=== PATIENT | male | born 1975 | race Caucasian/White ===

== ENCOUNTER 2017-12-08 12:53 | Inpatient (IN) | payer BC ==
[2017-12-08] MEDS ORDERED: SODIUM CHLORIDE 0.9% 1,000 ML IV STA (13:45)
[2017-12-08] MEDS ORDERED: PANTOPRAZOLE 40 MG/10 ML VIAL IVP STA (13:45)
[2017-12-08] MEDS ORDERED: SODIUM CHLORIDE 0.9% 500 ML IV STA (13:45)
[2017-12-08] MEDS ORDERED: ONDANSETRON 4 MG/2 ML VIAL IVP STA (13:45)
[2017-12-08] MEDS ORDERED: MORPHINE SULFATE/PF 10MG/10ML VL IVP STA ×2 (13:46→15:50)
[2017-12-08] MEDS ORDERED: RX INFO: IV CONTRAST WAS GIVEN 1 EACH MISC MISCELLANE PRN (13:47)
--- NOTE | 2017-12-08 13:53 | ED ---
General Adult HPI - General Chief complaint: GI Bleed Stated complaint: abdominal pain Time Seen by Provider: 12/08/17 13:35 Source: patient, family, RN notes reviewed Mode of arrival: wheelchair Limitations: no limitations - History of Present Illness Initial comments: Patient is a pleasant 42-year-old male presenting to the emergency department with abdominal discomfort. Onset of symptoms was over 10 days ago. Patient was seen at [facility] ER and had computed tomography scan diagnosed with colitis. Patient was started on Augmentin. Patient did have colonoscopy done 3 days ago also at [facility] and diagnosed with diverticulosis and diverticulitis. Patient was advised to continue antibiotics. Patient is having continued discomfort. Patient has nausea with occasional vomiting. Patient is tolerating fluids however limited solid food. Patient has been somewhat constipated. Last bowel movement was 2 days ago. Patient had 2 black stools at that time. Discomfort is mostly left lower abdomen. No fevers. - Related Data Home Medications Medication Instructions Recorded Confirmed No Known Home Medications [No 12/08/17 12/08/17 Known Home Medications] Allergies Allergy/AdvReac Type Severity Reaction Status Date / Time No Known Allergies Allergy Verified 12/08/17 13:40 Review of Systems ROS Statement: Those systems with pertinent positive or pertinent negative responses have been documented in the HPI. ROS Other: All systems not noted in ROS Statement are negative. Constitutional: Denies: fever Eyes: Denies: eye pain ENT: Denies: ear pain Respiratory: Denies: cough Cardiovascular: Denies: chest pain Endocrine: Denies: fatigue Gastrointestinal: Reports: abdominal pain, nausea, vomiting, constipation. Denies: diarrhea Musculoskeletal: Denies: back pain Skin: Denies: rash Neurological: Denies: weakness Past Medical History Past Medical History: GERD/Reflux History of Any Multi-Drug Resistant Organisms: None Reported Additional Past Surgical History / Comment(s): colonoscopy Past Psychological History: No Psychological Hx Reported Smoking Status: Current every day smoker Past Alcohol Use History: Daily Past Drug Use History: Marijuana General Exam Limitations: no limitations General appearance: alert, other (Patient does appear uncomfortable) Head exam: Present: atraumatic Eye exam: Present: normal appearance, PERRL ENT exam: Present: normal oropharynx Neck exam: Present: normal inspection Respiratory exam: Present: normal lung sounds bilaterally Cardiovascular Exam: Present: regular rate, normal rhythm Expanded Peripheral pulses: 2+: Radial (R), Radial (L), Posterior Tibialis (R), Posterior Tibialis (L) GI/Abdominal exam: Present: soft, tenderness (Moderate tenderness left lower abdomen), normal bowel sounds. Absent: distended, guarding, rebound, rigid, pulsatile mass Rectal exam: Present: bloody stool Extremities exam: Present: normal inspection Neurological exam: Present: alert Psychiatric exam: Present: normal affect, normal mood Skin exam: Present: normal color Course Vital Signs 12/08/17 12/08/17 13:05 15:12 Temperature 97.0 F L Pulse Rate 66 76 Respiratory 20 20 Rate Blood Pressure 157/90 133/85 O2 Sat by Pulse 99 98 Oximetry - Reevaluation(s) Reevaluation #1: 12/08/17 15:44 Patient was reevaluated and does appear much more comfortable however states he is still in discomfort. Patient and family updated on results and plan. Case was discussed in detail with Dr. Erickson, who will consult. He does request consults with interventional radiology as well as medical for admission. Dr. Ghotra has been paged for hospital call. 12/08/17 15:47 Case was discussed in detail with Dr. Loyd who did review the computed tomography scan and states this is more of a surgical case than interventional radiology Medical Decision Making - Lab Data Result diagrams: 12/08/17 14:00 12/08/17 14:00 Lab Results 12/08/17 12/08/17 12/08/17 Range/Units 14:00 14:00 14:00 WBC (3.8-10.6) k/uL RBC (4.30-5.90) m/uL Hgb (13.0-17.5) gm/dL Hct (39.0-53.0) % MCV (80.0-100.0) fL MCH (25.0-35.0) pg MCHC (31.0-37.0) g/dL RDW (11.5-15.5) % Plt Count (150-450) k/uL Neutrophils % % Lymphocytes % % Monocytes % % Eosinophils % % Basophils % % Neutrophils # (1.3-7.7) k/uL Lymphocytes # (1.0-4.8) k/uL Monocytes # (0-1.0) k/uL Eosinophils # (0-0.7) k/uL Basophils # (0-0.2) k/uL PT (9.0-12.0) sec INR (<1.2) APTT (22.0-30.0) sec Sodium 139 (137-145) mmol/L Potassium 4.1 (3.5-5.1) mmol/L Chloride 99 (98-107) mmol/L Carbon Dioxide 25 (22-30) mmol/L Anion Gap 15 mmol/L BUN 15 (9-20) mg/dL Creatinine 0.80 (0.66-1.25) mg/dL Est GFR (CKD-EPI)AfAm >90 (>60 ml/min/1.73 sqM) Est GFR (CKD-EPI)NonAf >90 (>60 ml/min/1.73 sqM) Glucose 123 H (74-99) mg/dL Plasma Lactic Acid Peter (0.7-2.0) mmol/L Calcium 9.9 (8.4-10.2) mg/dL Total Bilirubin 0.6 (0.2-1.3) mg/dL AST 12 L (17-59) U/L ALT 21 (21-72) U/L Alkaline Phosphatase 73 (38-126) U/L Total Creatine Kinase (55-170) U/L CK-MB (CK-2) (0.0-2.4) ng/mL CK-MB (CK-2) Rel Index Troponin I (0.000-0.034) ng/mL Total Protein 7.5 (6.3-8.2) g/dL Albumin 4.2 (3.5-5.0) g/dL Amylase 36 (30-110) U/L Lipase 34 (23-300) U/L Stool Occult Blood Negative (Negative) Blood Type A Positive Blood Type Recheck CABO Indicated Antibody Screen NEGATIVE Spec Expiration Date 12/11/2017 - 229912/08/17 12/08/17 12/08/17 Range/Units 14:00 14:00 14:00 WBC 18.1 H (3.8-10.6) k/uL RBC 4.86 (4.30-5.90) m/uL Hgb 16.1 (13.0-17.5) gm/dL Hct 47.2 (39.0-53.0) % MCV 97.2 (80.0-100.0) fL MCH 33.0 (25.0-35.0) pg MCHC 34.0 (31.0-37.0) g/dL RDW 12.3 (11.5-15.5) % Plt Count 355 (150-450) k/uL Neutrophils % 90 % Lymphocytes % 4 % Monocytes % 5 % Eosinophils % 1 % Basophils % 0 % Neutrophils # 16.2 H (1.3-7.7) k/uL Lymphocytes # 0.6 L (1.0-4.8) k/uL Monocytes # 0.8 (0-1.0) k/uL Eosinophils # 0.2 (0-0.7) k/uL Basophils # 0.1 (0-0.2) k/uL PT 9.5 (9.0-12.0) sec INR 0.9 (<1.2) APTT 23.0 (22.0-30.0) sec Sodium (137-145) mmol/L Potassium (3.5-5.1) mmol/L Chloride (98-107) mmol/L Carbon Dioxide (22-30) mmol/L Anion Gap mmol/L BUN (9-20) mg/dL Creatinine (0.66-1.25) mg/dL Est GFR (CKD-EPI)AfAm (>60 ml/min/1.73 sqM) Est GFR (CKD-EPI)NonAf (>60 ml/min/1.73 sqM) Glucose (74-99) mg/dL Plasma Lactic Acid Peter (0.7-2.0) mmol/L Calcium (8.4-10.2) mg/dL Total Bilirubin (0.2-1.3) mg/dL AST (17-59) U/L ALT (21-72) U/L Alkaline Phosphatase (38-126) U/L Total Creatine Kinase 29 L (55-170) U/L CK-MB (CK-2) <0.2 (0.0-2.4) ng/mL CK-MB (CK-2) Rel Index Troponin I <0.012 (0.000-0.034) ng/mL Total Protein (6.3-8.2) g/dL Albumin (3.5-5.0) g/dL Amylase (30-110) U/L Lipase (23-300) U/L Stool Occult Blood (Negative) Blood Type Blood Type Recheck Antibody Screen Spec Expiration Date 12/08/17 Range/Units 14:40 WBC (3.8-10.6) k/uL RBC (4.30-5.90) m/uL Hgb (13.0-17.5) gm/dL Hct (39.0-53.0) % MCV (80.0-100.0) fL MCH (25.0-35.0) pg MCHC (31.0-37.0) g/dL RDW (11.5-15.5) % Plt Count (150-450) k/uL Neutrophils % % Lymphocytes % % Monocytes % % Eosinophils % % Basophils % % Neutrophils # (1.3-7.7) k/uL Lymphocytes # (1.0-4.8) k/uL Monocytes # (0-1.0) k/uL Eosinophils # (0-0.7) k/uL Basophils # (0-0.2) k/uL PT (9.0-12.0) sec INR (<1.2) APTT (22.0-30.0) sec Sodium (137-145) mmol/L Potassium (3.5-5.1) mmol/L Chloride (98-107) mmol/L Carbon Dioxide (22-30) mmol/L Anion Gap mmol/L BUN (9-20) mg/dL Creatinine (0.66-1.25) mg/dL Est GFR (CKD-EPI)AfAm (>60 ml/min/1.73 sqM) Est GFR (CKD-EPI)NonAf (>60 ml/min/1.73 sqM) Glucose (74-99) mg/dL Plasma Lactic Acid Peter 1.1 (0.7-2.0) mmol/L Calcium (8.4-10.2) mg/dL Total Bilirubin (0.2-1.3) mg/dL AST (17-59) U/L ALT (21-72) U/L Alkaline Phosphatase (38-126) U/L Total Creatine Kinase (55-170) U/L CK-MB (CK-2) (0.0-2.4) ng/mL CK-MB (CK-2) Rel Index Troponin I (0.000-0.034) ng/mL Total Protein (6.3-8.2) g/dL Albumin (3.5-5.0) g/dL Amylase (30-110) U/L Lipase (23-300) U/L Stool Occult Blood (Negative) Blood Type Blood Type Recheck Antibody Screen Spec Expiration Date - Radiology Data Radiology results: report reviewed (Computed tomography scan of the abdomen pelvis does show pelvic abscess up to 6 cm. Associated colitis or diverticulitis.) Disposition Clinical Impression: Pelvic abscess Disposition: ADMITTED IP TO THIS HOSP Referrals: None,Stated [Primary Care Provider] - 1-2 days Decision Time: 15:48
[2017-12-08 14:18] LABS: Basophils # (A) 0.1 k/uL (0-0.2); Basophils % (A) 0 %; Eosinophils # (A) 0.2 k/uL (0-0.7); Eosinophils % (A) 1 %; HCT 47.2 % (39.0-53.0); HGB 16.1 gm/dL (13.0-17.5); Lymphocytes # (A) 0.6 k/uL (1.0-4.8); Lymphocytes % (A) 4 %; MCV 97.2 fL (80.0-100.0); Mean Platelet Volume 6.7; Monocytes # (A) 0.8 k/uL (0-1.0); Monocytes % (A) 5 %; Neutrophils # (A) 16.2 k/uL (1.3-7.7); Neutrophils % (A) 90 %; Platelet Count 355 k/uL (150-450); RBC 4.86 m/uL (4.30-5.90); RDW 12.3 % (11.5-15.5); WBC 18.1 k/uL (3.8-10.6)
[2017-12-08 14:32] LABS: ALT 21 U/L (21-72); AST 12 U/L (17-59); Albumin 4.2 g/dL (3.5-5.0); Alkaline Phosphatase 73 U/L (38-126); Amylase 36 U/L (30-110); Anion Gap 15 mmol/L; Blood Urea Nitrogen 15 mg/dL (9-20); Calcium 9.9 mg/dL (8.4-10.2); Carbon Dioxide 25 mmol/L (22-30); Chloride 99 mmol/L (98-107); Glucose 123 mg/dL (74-99); Lipase 34 U/L (23-300); Potassium 4.1 mmol/L (3.5-5.1); Sodium 139 mmol/L (137-145); Total Bilirubin 0.6 mg/dL (0.2-1.3); Total Protein 7.5 g/dL (6.3-8.2)
[2017-12-08 14:36] LABS: Creatine Kinase 29 U/L (55-170)
[2017-12-08 14:49] LABS: Creatine Kinase MB <0.2 ng/mL (0.0-2.4); Troponin I <0.012 ng/mL (0.000-0.034)
[2017-12-08 14:57] LABS: INR 0.9 (<1.2); Prothrombin Time 9.5 sec (9.0-12.0)
--- NOTE | 2017-12-08 15:20 | CT ---
EXAMINATION TYPE: CT abdomen pelvis w con DATE OF EXAM: 12/08/2017 COMPARISON: NONE HISTORY: Generalized abdominal pain. CT DLP: 348.5 mGycm Automated exposure control for dose reduction was used. TECHNIQUE: Helical acquisition of images from the lung bases through the pelvis have been completed. CONTRAST: Performed without Oral Contrast and with IV Contrast, patient injected with 100 mL of Omnipaque 350. FINDINGS: LUNG BASES: No significant abnormality is appreciated. AORTA: No significant abnormality is appreciated. LIVER/GB: No significant abnormality is appreciated. PANCREAS: No significant abnormality is seen. SPLEEN: No significant abnormality is seen. ADRENALS: No significant abnormality is seen. KIDNEYS: No significant abnormality is seen. REPRODUCTIVE ORGANS: No significant abnormality is seen BOWEL: There is an abnormal fluid collection adjacent to the sigmoid colon with mass effect causing the colon displacement towards the right. Fluid collection shows air fluid level and measures approxi mately 6 cm x 4.44 x 5.4 cm. There is associated colonic wall thickening. Luminal high density materi al is present within the colon possibly due to prior medication which is radiodense. FREE AIR: No Free Air visible. ASCITES: None visible. PELVIC ADENOPATHY: None visualized. RETROPERITONEAL ADENOPATHY: No Retroperitoneal Adenopathy visible. URINARY BLADDER: No significant abnormality is seen. OSSEOUS STRUCTURES: No significant abnormality is seen. IMPRESSION: PELVIC ABSCESS DESCRIBED. CORRELATE FOR COLITIS VERSUS POSSIBLE DIVERTICULAR ABSCESS
[2017-12-08] MEDS ORDERED: NALOXONE 0.4 MG/ML 1 ML VIAL IV PRN (15:48)
[2017-12-08] MEDS ORDERED: LEVOFLOXACIN 750MG-D5W PMX 750 MG in DEXTROSE/WATER 1 150ML.BAG IVPB STA (15:51)
[2017-12-08] MEDS ORDERED: metroNIDAZOLE-NS PMX 500 MG in SALINE 1 100ML.BAG IVPB STA (15:55)
--- NOTE | 2017-12-08 15:56 | ED ---
Medical Decision Making - Medical Decision Making Case was discussed in detail with Dr. Ghotra, who will admit. - Lab Data Result diagrams: 12/08/17 14:00 12/08/17 14:00 Lab Results 12/08/17 12/08/17 12/08/17 Range/Units 14:00 14:00 14:00 WBC (3.8-10.6) k/uL RBC (4.30-5.90) m/uL Hgb (13.0-17.5) gm/dL Hct (39.0-53.0) % MCV (80.0-100.0) fL MCH (25.0-35.0) pg MCHC (31.0-37.0) g/dL RDW (11.5-15.5) % Plt Count (150-450) k/uL Neutrophils % % Lymphocytes % % Monocytes % % Eosinophils % % Basophils % % Neutrophils # (1.3-7.7) k/uL Lymphocytes # (1.0-4.8) k/uL Monocytes # (0-1.0) k/uL Eosinophils # (0-0.7) k/uL Basophils # (0-0.2) k/uL PT (9.0-12.0) sec INR (<1.2) APTT (22.0-30.0) sec Sodium 139 (137-145) mmol/L Potassium 4.1 (3.5-5.1) mmol/L Chloride 99 (98-107) mmol/L Carbon Dioxide 25 (22-30) mmol/L Anion Gap 15 mmol/L BUN 15 (9-20) mg/dL Creatinine 0.80 (0.66-1.25) mg/dL Est GFR (CKD-EPI)AfAm >90 (>60 ml/min/1.73 sqM) Est GFR (CKD-EPI)NonAf >90 (>60 ml/min/1.73 sqM) Glucose 123 H (74-99) mg/dL Plasma Lactic Acid Peter (0.7-2.0) mmol/L Calcium 9.9 (8.4-10.2) mg/dL Total Bilirubin 0.6 (0.2-1.3) mg/dL AST 12 L (17-59) U/L ALT 21 (21-72) U/L Alkaline Phosphatase 73 (38-126) U/L Total Creatine Kinase (55-170) U/L CK-MB (CK-2) (0.0-2.4) ng/mL CK-MB (CK-2) Rel Index Troponin I (0.000-0.034) ng/mL Total Protein 7.5 (6.3-8.2) g/dL Albumin 4.2 (3.5-5.0) g/dL Amylase 36 (30-110) U/L Lipase 34 (23-300) U/L Stool Occult Blood Negative (Negative) Blood Type A Positive Blood Type Recheck CABO Indicated Antibody Screen NEGATIVE Spec Expiration Date 12/11/2017 - 229912/08/17 12/08/17 12/08/17 Range/Units 14:00 14:00 14:00 WBC 18.1 H (3.8-10.6) k/uL RBC 4.86 (4.30-5.90) m/uL Hgb 16.1 (13.0-17.5) gm/dL Hct 47.2 (39.0-53.0) % MCV 97.2 (80.0-100.0) fL MCH 33.0 (25.0-35.0) pg MCHC 34.0 (31.0-37.0) g/dL RDW 12.3 (11.5-15.5) % Plt Count 355 (150-450) k/uL Neutrophils % 90 % Lymphocytes % 4 % Monocytes % 5 % Eosinophils % 1 % Basophils % 0 % Neutrophils # 16.2 H (1.3-7.7) k/uL Lymphocytes # 0.6 L (1.0-4.8) k/uL Monocytes # 0.8 (0-1.0) k/uL Eosinophils # 0.2 (0-0.7) k/uL Basophils # 0.1 (0-0.2) k/uL PT 9.5 (9.0-12.0) sec INR 0.9 (<1.2) APTT 23.0 (22.0-30.0) sec Sodium (137-145) mmol/L Potassium (3.5-5.1) mmol/L Chloride (98-107) mmol/L Carbon Dioxide (22-30) mmol/L Anion Gap mmol/L BUN (9-20) mg/dL Creatinine (0.66-1.25) mg/dL Est GFR (CKD-EPI)AfAm (>60 ml/min/1.73 sqM) Est GFR (CKD-EPI)NonAf (>60 ml/min/1.73 sqM) Glucose (74-99) mg/dL Plasma Lactic Acid Peter (0.7-2.0) mmol/L Calcium (8.4-10.2) mg/dL Total Bilirubin (0.2-1.3) mg/dL AST (17-59) U/L ALT (21-72) U/L Alkaline Phosphatase (38-126) U/L Total Creatine Kinase 29 L (55-170) U/L CK-MB (CK-2) <0.2 (0.0-2.4) ng/mL CK-MB (CK-2) Rel Index Troponin I <0.012 (0.000-0.034) ng/mL Total Protein (6.3-8.2) g/dL Albumin (3.5-5.0) g/dL Amylase (30-110) U/L Lipase (23-300) U/L Stool Occult Blood (Negative) Blood Type Blood Type Recheck Antibody Screen Spec Expiration Date 12/08/17 Range/Units 14:40 WBC (3.8-10.6) k/uL RBC (4.30-5.90) m/uL Hgb (13.0-17.5) gm/dL Hct (39.0-53.0) % MCV (80.0-100.0) fL MCH (25.0-35.0) pg MCHC (31.0-37.0) g/dL RDW (11.5-15.5) % Plt Count (150-450) k/uL Neutrophils % % Lymphocytes % % Monocytes % % Eosinophils % % Basophils % % Neutrophils # (1.3-7.7) k/uL Lymphocytes # (1.0-4.8) k/uL Monocytes # (0-1.0) k/uL Eosinophils # (0-0.7) k/uL Basophils # (0-0.2) k/uL PT (9.0-12.0) sec INR (<1.2) APTT (22.0-30.0) sec Sodium (137-145) mmol/L Potassium (3.5-5.1) mmol/L Chloride (98-107) mmol/L Carbon Dioxide (22-30) mmol/L Anion Gap mmol/L BUN (9-20) mg/dL Creatinine (0.66-1.25) mg/dL Est GFR (CKD-EPI)AfAm (>60 ml/min/1.73 sqM) Est GFR (CKD-EPI)NonAf (>60 ml/min/1.73 sqM) Glucose (74-99) mg/dL Plasma Lactic Acid Peter 1.1 (0.7-2.0) mmol/L Calcium (8.4-10.2) mg/dL Total Bilirubin (0.2-1.3) mg/dL AST (17-59) U/L ALT (21-72) U/L Alkaline Phosphatase (38-126) U/L Total Creatine Kinase (55-170) U/L CK-MB (CK-2) (0.0-2.4) ng/mL CK-MB (CK-2) Rel Index Troponin I (0.000-0.034) ng/mL Total Protein (6.3-8.2) g/dL Albumin (3.5-5.0) g/dL Amylase (30-110) U/L Lipase (23-300) U/L Stool Occult Blood (Negative) Blood Type Blood Type Recheck Antibody Screen Spec Expiration Date Disposition Clinical Impression: Pelvic abscess Disposition: ADMITTED IP TO THIS HOSP Referrals: None,Stated [Primary Care Provider] - 1-2 days
[2017-12-08] MEDS ORDERED: IPRATROPIUM-ALBUTEROL 3 ML NEB INHALATION PRN (16:52)
--- NOTE | 2017-12-08 16:55 | P.HPIM ---
History of Present Illness 42-year-old gentleman the recently discharged from [facility] after he was treated for diverticulitis about 2 weeks ago started having abdominal pain again about 11 days ago patient was treated with Augmentin. Patient was seen by Dr. Lee and a had a colonoscopy which showed diverticulosis at that time patient also had a hiatal hernia. Patient had a CAT scan of the abdomen here which showed abscess in the sigmoid colon area surgery and interventional radiology were consulted. Patient denied any fever chills patient has a left lower quadrant severe 10/10 abdominal pain which is better now with pain medications. Patient has not been eating well because of his severe pain in the abdomen and not feeling well. Patient denied any diarrhea patient is also comparing of cough with a low sputum production patient is a smoker does have wheezing on exam. Review of Systems REVIEW OF SYSTEMS: CONSTITUTIONAL: No fever, no malaise, no fatigue. HEENT: No recent visual problems or hearing problems. Denied any sore throat. CARDIOVASCULAR: No chest pain, orthopnea, PND, no palpitations, no syncope. PULMONARY: No shortness of breath, no hemoptysis. GASTROINTESTINAL: As mentioned in HPI NEUROLOGICAL: No headaches, no weakness, no numbness. HEMATOLOGICAL: Denies any bleeding or petechiae. GENITOURINARY: Denies any burning micturition, frequency, or urgency. MUSCULOSKELETAL/RHEUMATOLOGICAL: Denies any joint pain, swelling, or any muscle pain. ENDOCRINE: Denies any polyuria or polydipsia. The rest of the 14-point review of systems is negative. Past Medical History Past Medical History: GERD/Reflux History of Any Multi-Drug Resistant Organisms: None Reported Additional Past Surgical History / Comment(s): colonoscopy Past Psychological History: No Psychological Hx Reported Smoking Status: Current every day smoker Past Alcohol Use History: Daily Past Drug Use History: Marijuana Medications and Allergies Home Medications Medication Instructions Recorded Confirmed Type No Known Home Medications [No 12/08/17 12/08/17 History Known Home Medications] Allergies Allergy/AdvReac Type Severity Reaction Status Date / Time No Known Allergies Allergy Verified 12/08/17 13:40 Physical Exam Vitals: Vital Signs Temp Pulse Resp BP Pulse Ox 12/08/17 15:12 76 20 133/85 98 12/08/17 13:05 97.0 F L 66 20 157/90 99 Intake and Output 12/08/17 12/08/17 12/08/17 06:59 14:59 22:59 Other: Weight 49.442 kg PHYSICAL EXAMINATION: GENERAL: The patient is alert and oriented x3, not in any acute distress. Well developed, well nourished. HEENT: Pupils are round and equally reacting to light. EOMI. No scleral icterus. No conjunctival pallor. Normocephalic, atraumatic. No pharyngeal erythema. No thyromegaly. CARDIOVASCULAR: S1 and S2 present. No murmurs, rubs, or gallops. PULMONARY: Minimal expiratory wheezing was appreciated bibasilar crackles are appreciated ABDOMEN: Tenderness in the left lower quadrant no rebound or rigidity. MUSCULOSKELETAL: No joint swelling or deformity. EXTREMITIES: No cyanosis, clubbing, or pedal edema. NEUROLOGICAL: Gross neurological examination did not reveal any focal deficits. SKIN: No rashes. Results CBC & Chem 7: 12/08/17 14:00 12/08/17 14:00 Labs: Abnormal Lab Results - Last 24 Hours (Table) 12/08/17 12/08/17 12/08/17 Range/Units 14:00 14:00 14:00 WBC 18.1 H (3.8-10.6) k/uL Neutrophils # 16.2 H (1.3-7.7) k/uL Lymphocytes # 0.6 L (1.0-4.8) k/uL Glucose 123 H (74-99) mg/dL AST 12 L (17-59) U/L Total Creatine Kinase 29 L (55-170) U/L Assessment and Plan Plan: -Abdominal pain due to diverticular abscess: Surgery was consulted interventional radiology was consulted, patient will be started on Rocephin continued on metronidazole antinausea medications as needed pain medications. Patient will remain nothing by mouth on to surgical evaluation. -Leukocytosis: Secondary to diverticular abscess. -Bronchitis with possibly of undiagnosed COPD patient will be started on Symbicort as needed inhalational treatments as needed .nicotine cessation counseling was provided
[2017-12-08] MEDS: cefTRIAXone IN SWFI 1,000 MG/10 ML SYRINGE IVP SCH (17:45)
--- NOTE | 2017-12-08 18:00 | P.GSCN ---
History of Present Illness Consult date: 12/08/17 History of present illness: 42-year-old male presented to the emergency department complaining of left lower quadrant pain. He was seen in emergency department approximately 10 days ago and was diagnosed with colitis at that time. He was started on antibiotics at home. He did follow up with Dr. Lee and had a upper and lower endoscopy performed 3 days ago. He states that he was diagnosed with diverticulitis at that time. Since that time he states he has had increasing amount of left lower quadrant pain. He denies any fevers, chills, chest pain or shortness of breath. He denies any nausea or vomiting. CT of the abdomen and pelvis was performed in the emergency department and that did show a 6 cm pelvic abscess. The patient also has a leukocytosis of 18. He has no additional complaints at this time. Review of Systems All systems: negative Past Medical History Past Medical History: GERD/Reflux Additional Past Medical History / Comment(s): recent told he had colitis. had egd/colonoscopy-diverticulosis/diverticulits, hiatal hernia, past bronchits History of Any Multi-Drug Resistant Organisms: None Reported Past Surgical History: Tonsillectomy Additional Past Surgical History / Comment(s): colonoscopy,egd, 2005 lt hand 3rd /4th finger sx d/t injury -pins since removed. Past Anesthesia/Blood Transfusion Reactions: No Reported Reaction Additional Past Anesthesia/Blood Transfusion Reaction / Comm: pt is independant. lives with his sig other antonio. no service. 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 Smoking Status: Current every day smoker - Past Family History Mother Additional Family Medical History / Comment(s): djd, macular hole, gait dysfuntion Father Family Medical History: Pneumonia Medications and Allergies Home Medications Medication Instructions Recorded Confirmed Type No Known Home Medications [No 12/08/17 12/08/17 History Known Home Medications] Allergies Allergy/AdvReac Type Severity Reaction Status Date / Time No Known Allergies Allergy Verified 12/08/17 13:40 Surgical - Exam Osteopathic Statement: *. No significant issues noted on an osteopathic structural exam other than those noted in the History and Physical/Consult. Vital Signs Temp Pulse Resp BP Pulse Ox 97.0 F L 66 20 157/90 99 12/08/17 13:05 12/08/17 13:05 12/08/17 13:05 12/08/17 13:05 12/08/17 13:05 - General well nourished, no distress - Eyes PERRL - ENT no hearing loss - Neck trachea midline - Respiratory No difficulty with respiration - Abdomen Soft, tender in the left lower quadrant and suprapubic region, nondistended, no rebound, no guarding - Neurologic normal sensation - Psychiatric oriented to time, oriented to person, oriented to place, speech is normal Results - Labs 12/08/17 14:00 12/08/17 14:00 Abnormal Lab Results - Last 24 Hours (Table) 12/08/17 12/08/17 12/08/17 Range/Units 14:00 14:00 14:00 WBC 18.1 H (3.8-10.6) k/uL Neutrophils # 16.2 H (1.3-7.7) k/uL Lymphocytes # 0.6 L (1.0-4.8) k/uL Glucose 123 H (74-99) mg/dL AST 12 L (17-59) U/L Total Creatine Kinase 29 L (55-170) U/L Diabetes panel 12/08/17 Range/Units 14:00 Sodium 139 (137-145) mmol/L Potassium 4.1 (3.5-5.1) mmol/L Chloride 99 (98-107) mmol/L Carbon Dioxide 25 (22-30) mmol/L BUN 15 (9-20) mg/dL Creatinine 0.80 (0.66-1.25) mg/dL Glucose 123 H (74-99) mg/dL Calcium 9.9 (8.4-10.2) mg/dL AST 12 L (17-59) U/L ALT 21 (21-72) U/L Alkaline Phosphatase 73 (38-126) U/L Total Protein 7.5 (6.3-8.2) g/dL Albumin 4.2 (3.5-5.0) g/dL Calcium panel 12/08/17 Range/Units 14:00 Calcium 9.9 (8.4-10.2) mg/dL Albumin 4.2 (3.5-5.0) g/dL Pituitary panel 12/08/17 Range/Units 14:00 Sodium 139 (137-145) mmol/L Potassium 4.1 (3.5-5.1) mmol/L Chloride 99 (98-107) mmol/L Carbon Dioxide 25 (22-30) mmol/L BUN 15 (9-20) mg/dL Creatinine 0.80 (0.66-1.25) mg/dL Glucose 123 H (74-99) mg/dL Calcium 9.9 (8.4-10.2) mg/dL Adrenal panel 12/08/17 Range/Units 14:00 Sodium 139 (137-145) mmol/L Potassium 4.1 (3.5-5.1) mmol/L Chloride 99 (98-107) mmol/L Carbon Dioxide 25 (22-30) mmol/L BUN 15 (9-20) mg/dL Creatinine 0.80 (0.66-1.25) mg/dL Glucose 123 H (74-99) mg/dL Calcium 9.9 (8.4-10.2) mg/dL Total Bilirubin 0.6 (0.2-1.3) mg/dL AST 12 L (17-59) U/L ALT 21 (21-72) U/L Alkaline Phosphatase 73 (38-126) U/L Total Protein 7.5 (6.3-8.2) g/dL Albumin 4.2 (3.5-5.0) g/dL - Imaging CT scan - abdomen: report reviewed, image reviewed CT scan - pelvis: report reviewed, image reviewed (CT of the abdomen and pelvis was reviewed. A 6 cm abscess is noted to be at the level of the sigmoid colon and pelvis.) Assessment and Plan (1) Pelvic abscess Narrative/Plan: 42-year-old male with pelvic abscess likely secondary to diverticulitis - 6 Centimeter abscess, plan for interventional radiology to evaluate for possible drainage - Nothing by mouth - Continue antibiotics - Will discuss any surgical intervention once he has been evaluated by interventional radiology Thank you for this consultation. I look forward in providing in this patient's care. Current Visit: Yes Status: Acute Code(s): [id number] - SNOMED Code(s): 992887332
[2017-12-08] MEDS: NICOTINE 21MG/24HR PATCH TRANSDERM SCH (18:17)
[2017-12-08] MEDS: SYMBICORT 80-4.5 MCG INHALER INHALATION SCH (19:23)
[2017-12-08] MEDS: MORPHINE SULFATE/PF 10MG/10ML VL IV PRN (20:08)
[2017-12-08] MEDS: SODIUM CHLORIDE 0.9% 1,000 ML IV SCH (22:46)
[2017-12-08] MEDS: ONDANSETRON 4 MG/2 ML VIAL IVP PRN (22:46)
[2017-12-08] MEDS: metroNIDAZOLE-NS PMX 500 MG in SALINE 1 100ML.BAG IVPB SCH (23:16)
[2017-12-09] MEDS: MORPHINE SULFATE/PF 10MG/10ML VL IV PRN ×5 (01:05→22:04)
[2017-12-09] MEDS: SODIUM CHLORIDE 0.9% 1,000 ML IV SCH ×3 (05:37→19:24)
[2017-12-09] MEDS: ONDANSETRON 4 MG/2 ML VIAL IVP PRN ×2 (06:21→15:27)
[2017-12-09 07:43] LABS: HCT 37.4 % (39.0-53.0); MCH 33.6 pg (25.0-35.0); MCHC 34.2 g/dL (31.0-37.0); MCV 98.1 fL (80.0-100.0); Mean Platelet Volume 6.9; Platelet Count 300 k/uL (150-450); RBC 3.81 m/uL (4.30-5.90); RDW 12.3 % (11.5-15.5)
[2017-12-09 07:57] LABS: HGB 12.8 gm/dL (13.0-17.5)
[2017-12-09 08:04] LABS: Anion Gap 10 mmol/L; Blood Urea Nitrogen 11 mg/dL (9-20); Calcium 8.7 mg/dL (8.4-10.2); Carbon Dioxide 26 mmol/L (22-30); Chloride 102 mmol/L (98-107); Glucose 88 mg/dL (74-99); Potassium 3.9 mmol/L (3.5-5.1); Sodium 138 mmol/L (137-145)
[2017-12-09] MEDS: SYMBICORT 80-4.5 MCG INHALER INHALATION SCH ×2 (08:16→20:33)
[2017-12-09] MEDS: PANTOPRAZOLE 40 MG/10 ML VIAL IV SCH (08:31)
[2017-12-09] MEDS: NICOTINE 21MG/24HR PATCH TRANSDERM SCH (08:31)
[2017-12-09] MEDS: metroNIDAZOLE-NS PMX 500 MG in SALINE 1 100ML.BAG IVPB SCH ×3 (08:31→23:30)
--- NOTE | 2017-12-09 10:41 | P.PN ---
Subjective Progress Note Date: 12/09/17 Patient seen and examined at bedside. He is in good spirits. He states his abdominal pain is mildly improved. He denies any nausea and vomiting. He has had no bowel function. Objective - Vital Signs Vital signs: Vital Signs Temp 97.3 F L 12/09/17 06:13 Pulse 78 12/09/17 10:24 Resp 18 12/09/17 10:24 BP 118/76 12/09/17 10:24 Pulse Ox 99 12/09/17 10:24 Intake & Output 12/08/17 12/09/17 12/09/17 18:59 06:59 18:59 Intake Total 100 Balance 100 Weight 49.442 kg Intake: Intake, IV Titration 100 Amount metroNIDAZOLE-NS PMX 500 100 mg In Saline 1 100ml.bag @ 100 mls/hr IVPB ONCE STA Rx#:[id number] Other: Voiding Method Toilet Toilet # Voids 2 - Constitutional General appearance: Present: cooperative, no acute distress - EENT Eyes: Present: PERRLA ENT: Present: hearing grossly normal - Respiratory Details: No difficulty with respiration - Gastrointestinal Gastrointestinal Comment(s): Soft, tenderness in the left lower quadrant and suprapubic region, nondistended , no rebound, no guarding - Psychiatric Psychiatric: Present: A&O x's 3 - Labs CBC & Chem 7: 12/09/17 07:14 12/09/17 07:14 Labs: Abnormal Lab Results - Last 24 Hours (Table) 12/08/17 12/08/17 12/08/17 Range/Units 14:00 14:00 14:00 WBC 18.1 H (3.8-10.6) k/uL RBC (4.30-5.90) m/uL Hgb (13.0-17.5) gm/dL Hct (39.0-53.0) % Neutrophils # 16.2 H (1.3-7.7) k/uL Lymphocytes # 0.6 L (1.0-4.8) k/uL Glucose 123 H (74-99) mg/dL AST 12 L (17-59) U/L Total Creatine Kinase 29 L (55-170) U/L 12/09/17 Range/Units 07:14 WBC 13.0 H (3.8-10.6) k/uL RBC 3.81 L (4.30-5.90) m/uL Hgb 12.8 L D (13.0-17.5) gm/dL Hct 37.4 L (39.0-53.0) % Neutrophils # (1.3-7.7) k/uL Lymphocytes # (1.0-4.8) k/uL Glucose (74-99) mg/dL AST (17-59) U/L Total Creatine Kinase (55-170) U/L Assessment and Plan (1) Pelvic abscess Narrative/Plan: 42-year-old male with pelvic abscess likely secondary to diverticulitis - 6 Centimeter abscess, I discussed the case with interventional radiology, he will have a drainage of the abscess attempted today and leave a drain if possible - Nothing by mouth - Continue antibiotics, leukocytosis has improved from 18 to 13 today - Will discuss any surgical intervention once he has been evaluated by interventional radiology Current Visit: Yes Status: Acute Code(s): [id number] - SNOMED Code(s): 385528014
--- NOTE | 2017-12-09 12:42 | CT ---
EXAMINATION TYPE: CT guided abscess drainage DATE OF EXAM: 12/09/2017 HISTORY: Pelvic abscess COMPARISON: NONE PROCEDURE: Maximal barrier technique was utilized. The skin over suitable path to the abscess was localized wit h CT and the overlying skin prepped and draped. Lidocaine was used for local anesthesia. A skin moo k made with a scalpel. Access was gained using CT guidance with a 21-gauge needle, purulent material returned in the hub of the needle. A 0.018 inch wire was advanced and the access site was upsized, the wire was upsized and subsequently an 8.5-Serbian drain was deployed within the abscess cavity and fixed in place. Catheter attached to gravity drainage. No immediate complication. Purulent sanguin ous material sent for laboratory analysis and draining into the bag. The patient remained in stable condition. IMPRESSION: STATUS POST CT GUIDED ABSCESS DRAINAGE, MICROBIOLOGY ANALYSIS IS PENDING. THIS PROCEDURE WAS PERFORM ED BY THE UNDERSIGNED.
[2017-12-09 14:34] VITALS: BMI 16.0
[2017-12-09] MEDS ORDERED: LEVOFLOXACIN 750MG-D5W PMX 750 MG in DEXTROSE/WATER 1 150ML.BAG IVPB SCH (16:00)
[2017-12-09] MEDS: cefTRIAXone IN SWFI 1,000 MG/10 ML SYRINGE IVP SCH (19:23)
[2017-12-09] MEDS ORDERED: MELATONIN 3 MG TABLET PO PRN (20:20)
[2017-12-09] MEDS ORDERED: diphenhydrAMINE 50 MG CAP PO PRN (20:21)
[2017-12-09] MEDS ORDERED: ZOLPIDEM 5 MG TAB PO PRN (20:21)
[2017-12-10] MEDS: MORPHINE SULFATE/PF 10MG/10ML VL IV PRN ×2 (04:16→09:03)
[2017-12-10] MEDS: metroNIDAZOLE-NS PMX 500 MG in SALINE 1 100ML.BAG IVPB SCH ×2 (07:36→15:02)
[2017-12-10] MEDS: NICOTINE 21MG/24HR PATCH TRANSDERM SCH (07:36)
[2017-12-10] MEDS: PANTOPRAZOLE 40 MG/10 ML VIAL IV SCH (07:36)
[2017-12-10] MEDS: SYMBICORT 80-4.5 MCG INHALER INHALATION SCH ×2 (08:06→19:34)
[2017-12-10 09:01] LABS: Anion Gap 10 mmol/L; Blood Urea Nitrogen 9 mg/dL (9-20); Calcium 8.5 mg/dL (8.4-10.2); Carbon Dioxide 26 mmol/L (22-30); Chloride 100 mmol/L (98-107); Glucose 83 mg/dL (74-99); Potassium 3.8 mmol/L (3.5-5.1); Sodium 136 mmol/L (137-145)
[2017-12-10 10:00] LABS: Basophils # (A) 0.1 k/uL (0-0.2); Basophils % (A) 1 %; Eosinophils # (A) 0.2 k/uL (0-0.7); Eosinophils % (A) 3 %; HCT 37.8 % (39.0-53.0); HGB 12.4 gm/dL (13.0-17.5); Lymphocytes # (A) 1.1 k/uL (1.0-4.8); Lymphocytes % (A) 13 %; MCH 32.6 pg (25.0-35.0); MCHC 32.9 g/dL (31.0-37.0); Mean Platelet Volume 6.8; Monocytes # (A) 0.8 k/uL (0-1.0); Monocytes % (A) 9 %; Neutrophils # (A) 6.1 k/uL (1.3-7.7); Neutrophils % (A) 73 %; Platelet Count 353 k/uL (150-450); RBC 3.81 m/uL (4.30-5.90); RDW 12.4 % (11.5-15.5); WBC 8.4 k/uL (3.8-10.6)
--- NOTE | 2017-12-10 10:32 | P.PN ---
Subjective Progress Note Date: 12/10/17 Patient seen and examined at bedside. He is status post placement of IR drain for pelvic abscess. There was approximately 30-40 mL of ramos material that was drained since placement. The patient states that he feels 80% better since that drain has been placed. He denies any nausea and vomiting. He has had multiple bowel movements. He states they have all been liquid. He is tolerating a clear liquid diet at this time. Objective - Vital Signs Vital signs: Vital Signs Temp 97.2 F L 12/10/17 06:37 Pulse 71 12/10/17 06:37 Resp 18 12/10/17 06:37 BP 106/73 12/10/17 06:37 Pulse Ox 98 12/10/17 06:37 Intake & Output 12/09/17 12/10/17 12/10/17 18:59 06:59 18:59 Output Total 350 Balance -350 Weight 49.442 kg Output: Drainage 350 Left Buttock 350 Other: Voiding Method Toilet Toilet # Voids 2 1 # Bowel Movements 1 - Constitutional General appearance: Present: cooperative, no acute distress - EENT ENT: Present: hearing grossly normal - Respiratory Details: No difficulty with respiration - Gastrointestinal Gastrointestinal Comment(s): Soft, mild tenderness in the suprapubic area, nondistended, no rebound, no guarding - Psychiatric Psychiatric: Present: A&O x's 3 - Labs CBC & Chem 7: 12/10/17 08:10 12/10/17 08:10 Labs: Abnormal Lab Results - Last 24 Hours (Table) 12/10/17 12/10/17 Range/Units 08:10 08:10 RBC 3.81 L (4.30-5.90) m/uL Hgb 12.4 L (13.0-17.5) gm/dL Hct 37.8 L (39.0-53.0) % Sodium 136 L (137-145) mmol/L Microbiology - Last 24 Hours (Table) 12/09/17 10:50 Gram Stain - Preliminary Aspirate Body Fluid Culture - Preliminary 12/09/17 10:50 Anaerobic Culture - Preliminary Aspirate 12/08/17 14:00 Blood Culture - Preliminary Blood No Growth after 24 hours Assessment and Plan (1) Pelvic abscess Narrative/Plan: 42-year-old male with pelvic abscess likely secondary to diverticulitis - IR drain placed yesterday, 30-40 mL of ramos fluid drained so far -Advance to full liquid diet - Continue antibiotics, leukocytosis resolved, infectious disease recommendations appreciated - Will discuss with infectious disease plan for outpatient regimen of antibiotic treatment and plan for elective surgical resection of his colon in the future Current Visit: Yes Status: Acute Code(s): [id number] - SNOMED Code(s): 670222539
[2017-12-10] MEDS: HYDROcodone/APAP 5-325MG 1 EACH TAB PO PRN ×2 (14:09→20:48)
[2017-12-10] MEDS: SODIUM CHLORIDE 0.9% 1,000 ML IV SCH (15:02)
[2017-12-10] MEDS: AMPICILLIN-SULBACTAM 3 GM in SODIUM CHLORIDE 0.9% 100 ML IVPB SCH ×2 (17:13→23:11)
--- NOTE | 2017-12-10 17:54 | CONS ---
CONSULTATION DATE OF SERVICE: 12/10/2017 REASON FOR CONSULTATION: Pelvic abscess. HISTORY OF PRESENT ILLNESS: The patient is a 42-year-old male with a past medical history of problems with pain in the left lower abdominal area that has been going off and on for the last few weeks. Apparently he has been treated for the same at [facility] and had visits to this facility. The patient said that he was diagnosed with colitis and has been given some antibiotics; however, he is not sure about the name of those antibiotics. The patient's pain continued getting worse, becoming almost 8 out of 10; has felt nauseated with it but no vomiting. Denies having diarrhea. Has had constipation. With persistent worsening pain, he came to the ER at [facility] on 12/08/2017, where the patient did have a CT of abdomen and pelvis that was suggestive of a 6 x 4 x 5 cm collection with associated colonic wall thickening. The patient did have CT-guided drainage of this collection by Interventional Radiology. The patient has been admitted to hospital, has been treated with Rocephin and Flagyl. I was asked to see the patient this morning for further recommendations regarding antibiotic therapy. The patient has been complaining of pain, mostly from this drainage catheter that he has on his left gluteal area. The patient denies having any chest pain, shortness of breath or cough. No nausea, vomiting and no diarrhea. REVIEW OF SYSTEMS: CONSTITUTIONAL: Positive for weakness and some chills. EYES: No complaint. ENT: No complaint. RESPIRATORY: No complaint. CARDIOVASCULAR: No complaint. GENITOURINARY: No complaint. GASTROINTESTINAL: As per HPI. MUSCULOSKELETAL: No complaint. INTEGUMENTARY: No complaint. PSYCHOLOGICAL: No complaint. ENDOCRINE: No complaint. NEUROLOGICAL: No complaint. PAST MEDICAL HISTORY: Gastroesophageal reflux disease and diverticulitis. PAST SURGICAL HISTORY: Colonoscopy, SOCIAL HISTORY: Current everyday smoker. Does admit to marijuana use and alcohol but no IV drug use. FAMILY HISTORY: No pertinent findings noticed. ALLERGIES: NO KNOWN DRUG ALLERGIES. CURRENT MEDICATIONS: 1. [place]. 2. DuoNeb. 3. Rocephin 1 gram daily. 4. Levofloxacin. 5. Flagyl. 6. Morphine sulfate. 7. Narcan. 8. Nicotine patch. 9. Zofran. 10.Protonix. 11.Ambien. PHYSICAL EXAMINATION: Blood pressure 136/73 with a pulse of 71, temperature 97.2. He is 98% on room air. General description is a middle-aged male up in the room in no distress. No tachypnea or accessory muscle of respiration use. HEENT examination shows no pallor or scleral icterus. Oral mucosa membrane is dry. NECK: Trachea is central. No thyromegaly. LUNGS: Unlabored breathing. Clear to auscultation anteriorly. HEART: S1, S2. Regular rate and rhythm. ABDOMEN: Soft. He has mild tenderness, left lower quadrant area. No guarding or rigidity. No organomegaly. EXTREMITIES: No edema of the feet. SKIN EXAMINATION: No rash or mass palpable. Neurologically patient is awake, alert, oriented x3. Mood and affect normal. LABS: Hemoglobin is 12.4, white count of 8.4. Admission white count was 18.1. BUN of 9, creatinine 0.76. The CT-guided aspirate fluid is currently pending. DIAGNOSTIC IMPRESSION AND PLAN: Patient with a pelvic abscess, likely secondary to perforated diverticulitis, status post CT-guided drainage enteric Gram-negative, both aerobes and anaerobes. PLAN: 1. We will discontinue the Rocephin and Levaquin. 2. Start the patient on Unasyn 3 grams every 6 hours. 3. Depending upon the clinical response as well as culture, will determine his discharge antibiotics. Thank you for this consultation. Will follow this patient along with you. MMODL / IJN: [id number] /
[2017-12-10] MEDS: MORPHINE ORAL SOLN 10 MG/5 ML CUP PO PRN (18:09)
--- NOTE | 2017-12-10 18:21 | P.PN ---
Subjective Progress Note Date: 12/09/17 Progress note being dictated for Dr. Ghotra Interval history:42-year-old gentleman the recently discharged from [facility] after he was treated for diverticulitis about 2 weeks ago started having abdominal pain again about 11 days ago patient was treated with Augmentin. Patient was seen by Dr. Lee and a had a colonoscopy which showed diverticulosis at that time patient also had a hiatal hernia. Patient had a CAT scan of the abdomen here which showed abscess in the sigmoid colon area surgery and interventional radiology were consulted. Patient denied any fever chills patient has a left lower quadrant severe 10/10 abdominal pain which is better now with pain medications. Patient has not been eating well because of his severe pain in the abdomen and not feeling well. Patient denied any diarrhea patient is also comparing of cough with a low sputum production patient is a smoker does have wheezing on exam. Review of Systems REVIEW OF SYSTEMS: CONSTITUTIONAL: No fever, no malaise, no fatigue. HEENT: No recent visual problems or hearing problems. Denied any sore throat. CARDIOVASCULAR: No chest pain, orthopnea, PND, no palpitations, no syncope. PULMONARY: No shortness of breath, no hemoptysis. GASTROINTESTINAL: As mentioned in HPI NEUROLOGICAL: No headaches, no weakness, no numbness. HEMATOLOGICAL: Denies any bleeding or petechiae. GENITOURINARY: Denies any burning micturition, frequency, or urgency. MUSCULOSKELETAL/RHEUMATOLOGICAL: Denies any joint pain, swelling, or any muscle pain. ENDOCRINE: Denies any polyuria or polydipsia. The rest of the 14-point review of systems is negative. 12/09/[address]-guided abscess drainage with interventional radiology. Tolerated procedure well. Cultures sent. Maintained on IV antibiotics, WBC improving. Reports improving abdominal pain. Denies nausea vomiting. no bowel movement. Objective - Vital Signs Vital signs: Vital Signs Temp 97.1 F L 12/09/17 15:00 Pulse 78 12/09/17 15:00 Resp 16 12/09/17 16:01 BP 125/89 12/09/17 15:00 Pulse Ox 99 12/09/17 15:00 Intake & Output 12/09/17 12/09/17 12/10/17 06:59 18:59 06:59 Weight 49.442 kg Other: Voiding Method Toilet # Voids 2 2 - Exam GENERAL: The patient is alert and oriented x3, no acute distress. Well developed , well nourished. HEENT: Pupils are round and equally reacting to light. EOMI. No scleral icterus. No conjunctival pallor. Normocephalic, atraumatic. No pharyngeal erythema. No thyromegaly. CARDIOVASCULAR: S1 and S2 present. No murmurs, rubs, or gallops. PULMONARY: Minimal expiratory wheezing was appreciated bibasilar crackles ABDOMEN: Tenderness in the left lower quadrant no rebound or rigidity. MUSCULOSKELETAL: No joint swelling or deformity. EXTREMITIES: No cyanosis, clubbing, or pedal edema. NEUROLOGICAL: Gross neurological examination did not reveal any focal deficits. SKIN: No rashes. - Labs CBC & Chem 7: 12/10/17 08:10 12/10/17 08:10 Labs: Abnormal Lab Results - Last 24 Hours (Table) 12/09/17 Range/Units 07:14 WBC 13.0 H (3.8-10.6) k/uL RBC 3.81 L (4.30-5.90) m/uL Hgb 12.8 L D (13.0-17.5) gm/dL Hct 37.4 L (39.0-53.0) % Microbiology - Last 24 Hours (Table) 12/08/17 14:00 Blood Culture - Preliminary Blood No Growth after 24 hours 12/09/17 10:50 Anaerobic Culture - Preliminary Aspirate 12/09/17 10:50 Body Fluid Culture - Preliminary Aspirate Assessment and Plan Assessment: -Abdominal pain due to diverticular abscess: Status post CT-guided abscess drainage per IR -Leukocytosis: Secondary to diverticular abscess, improving. -Bronchitis with possibly of undiagnosed COPD Plan: Continue on current medication regime ,monitoring. Maintain IV antibiotics. Await culture results. Increase activity as tolerated. Smoking cessation readdressed. Further recommendations to follow. The impression and plan of care has been dictated as directed. : I performed a history and examination of this patient, discussed the same with the dictator. I agree with the dictator's note ,documented as a scribe. Any additional findings or plans will be noted.
--- NOTE | 2017-12-10 18:29 | P.PN ---
Subjective Progress Note Date: 12/09/17 Progress note being dictated for Dr. Ghotra Interval history:42-year-old gentleman the recently discharged from [facility] after he was treated for diverticulitis about 2 weeks ago started having abdominal pain again about 11 days ago patient was treated with Augmentin. Patient was seen by Dr. Lee and a had a colonoscopy which showed diverticulosis at that time patient also had a hiatal hernia. Patient had a CAT scan of the abdomen here which showed abscess in the sigmoid colon area surgery and interventional radiology were consulted. Patient denied any fever chills patient has a left lower quadrant severe 10/10 abdominal pain which is better now with pain medications. Patient has not been eating well because of his severe pain in the abdomen and not feeling well. Patient denied any diarrhea patient is also comparing of cough with a low sputum production patient is a smoker does have wheezing on exam. Review of Systems REVIEW OF SYSTEMS: CONSTITUTIONAL: No fever, no malaise, no fatigue. HEENT: No recent visual problems or hearing problems. Denied any sore throat. CARDIOVASCULAR: No chest pain, orthopnea, PND, no palpitations, no syncope. PULMONARY: No shortness of breath, no hemoptysis. GASTROINTESTINAL: As mentioned in HPI NEUROLOGICAL: No headaches, no weakness, no numbness. HEMATOLOGICAL: Denies any bleeding or petechiae. GENITOURINARY: Denies any burning micturition, frequency, or urgency. MUSCULOSKELETAL/RHEUMATOLOGICAL: Denies any joint pain, swelling, or any muscle pain. ENDOCRINE: Denies any polyuria or polydipsia. The rest of the 14-point review of systems is negative. 12/09/[address]-guided abscess drainage with interventional radiology. Tolerated procedure well. Cultures sent. Maintained on IV antibiotics, WBC improving. Reports improving abdominal pain. Denies nausea vomiting. no bowel movement. 12/10/2017. Pelvic abscess drain with thick dark brownish small amount of drainage. significant improvement in abdominal pain. Tolerating clear liquid diet. Denies nausea vomiting. Multiple episodes of diarrhea. Maintained on IV antibiotics. Afebrile, WBC within normal limits. Objective - Vital Signs Vital signs: Vital Signs Temp 97.2 F L 12/10/17 06:37 Pulse 71 12/10/17 06:37 Resp 18 12/10/17 06:37 BP 106/73 03/21/18 06:37 Pulse Ox 98 12/10/17 06:37 Intake & Output 12/09/17 12/10/17 12/10/17 18:59 06:59 18:59 Output Total 350 Balance -350 Weight 49.442 kg Output: Drainage 350 Left Buttock 350 Other: Voiding Method Toilet Toilet # Voids 2 1 2 # Bowel Movements 1 1 - Exam GENERAL: The patient is alert and oriented x3, not in any acute distress. Well developed, well nourished. HEENT: Pupils are round and equally reacting to light. EOMI. No scleral icterus. No conjunctival pallor. Normocephalic, atraumatic. No pharyngeal erythema. No thyromegaly. CARDIOVASCULAR: S1 and S2 present. No murmurs, rubs, or gallops. PULMONARY: Minimal expiratory wheezing was appreciated bibasilar crackles are appreciated ABDOMEN: Tenderness in the left lower quadrant no rebound or rigidity. MUSCULOSKELETAL: No joint swelling or deformity. EXTREMITIES: No cyanosis, clubbing, or pedal edema. NEUROLOGICAL: Gross neurological examination did not reveal any focal deficits. SKIN: No rashes. - Labs CBC & Chem 7: 12/10/17 08:10 12/10/17 08:10 Labs: Abnormal Lab Results - Last 24 Hours (Table) 12/10/17 12/10/17 Range/Units 08:10 08:10 RBC 3.81 L (4.30-5.90) m/uL Hgb 12.4 L (13.0-17.5) gm/dL Hct 37.8 L (39.0-53.0) % Sodium 136 L (137-145) mmol/L Microbiology - Last 24 Hours (Table) 12/09/17 10:50 Gram Stain - Preliminary Aspirate Body Fluid Culture - Preliminary 12/09/17 10:50 Anaerobic Culture - Preliminary Aspirate 12/08/17 14:00 Blood Culture - Preliminary Blood No Growth after 24 hours Assessment and Plan Assessment: -Abdominal pain due to diverticular abscess ,status post abscess drain placement , -Leukocytosis: Secondary to diverticular abscess, resolved -Bronchitis with possibly of undiagnosed COPD Plan: Continue on current medication regime ,monitoring. Maintain IV antibiotics. Await culture results. Diet advanced as per surgery. Increase activity as tolerated. The impression and plan of care has been dictated as directed. : I performed a history and examination of this patient, discussed the same with the dictator. I agree with the dictator's note ,documented as a scribe. Any additional findings or plans will be noted.
[2017-12-10] MEDS: ONDANSETRON 4 MG/2 ML VIAL IVP PRN (19:36)
[2017-12-11] MEDS: metroNIDAZOLE-NS PMX 500 MG in SALINE 1 100ML.BAG IVPB SCH ×3 (00:19→15:44)
[2017-12-11] MEDS: HYDROcodone/APAP 5-325MG 1 EACH TAB PO PRN ×4 (02:18→22:41)
[2017-12-11] MEDS: AMPICILLIN-SULBACTAM 3 GM in SODIUM CHLORIDE 0.9% 100 ML IVPB SCH ×4 (05:02→23:05)
[2017-12-11] MEDS: SODIUM CHLORIDE 0.9% 1,000 ML IV SCH (06:09)
[2017-12-11] MEDS: SYMBICORT 80-4.5 MCG INHALER INHALATION SCH ×2 (07:32→19:10)
[2017-12-11 08:18] LABS: Basophils # (A) 0.1 k/uL (0-0.2); Basophils % (A) 0 %; Eosinophils # (A) 0.1 k/uL (0-0.7); Eosinophils % (A) 1 %; HCT 36.9 % (39.0-53.0); Lymphocytes # (A) 0.8 k/uL (1.0-4.8); Lymphocytes % (A) 8 %; MCH 32.3 pg (25.0-35.0); MCHC 32.4 g/dL (31.0-37.0); MCV 99.4 fL (80.0-100.0); Monocytes # (A) 0.7 k/uL (0-1.0); Monocytes % (A) 7 %; Neutrophils # (A) 8.7 k/uL (1.3-7.7); Neutrophils % (A) 83 %; Platelet Count 330 k/uL (150-450); RBC 3.71 m/uL (4.30-5.90); RDW 12.3 % (11.5-15.5); WBC 10.5 k/uL (3.8-10.6)
[2017-12-11] MEDS: NICOTINE 21MG/24HR PATCH TRANSDERM SCH (08:33)
[2017-12-11] MEDS: PANTOPRAZOLE 40 MG/10 ML VIAL IV SCH (08:35)
[2017-12-11 08:37] LABS: Anion Gap 9 mmol/L; Blood Urea Nitrogen 5 mg/dL (9-20); Calcium 8.3 mg/dL (8.4-10.2); Carbon Dioxide 27 mmol/L (22-30); Chloride 99 mmol/L (98-107); Glucose 93 mg/dL (74-99); Potassium 3.5 mmol/L (3.5-5.1); Sodium 135 mmol/L (137-145)
[2017-12-11] MEDS: MORPHINE ORAL SOLN 10 MG/5 ML CUP PO PRN (08:43)
--- NOTE | 2017-12-11 12:17 | P.PN ---
Subjective Progress Note Date: 12/11/17 Patient seen and examined at bedside. He states that his abdominal pain has mostly resolved. He has had some continued drainage from the IR drain that is purulent in nature. Denies any nausea and vomiting. Denies fevers, chills, chest pain or shortness of breath. Objective - Vital Signs Vital signs: Vital Signs Temp 99.4 F 12/11/17 07:00 Pulse 82 12/11/17 07:00 Resp 18 12/11/17 08:46 BP 103/68 12/11/17 07:00 Pulse Ox 98 12/11/17 07:00 Intake & Output 12/10/17 12/11/17 12/11/17 18:59 06:59 18:59 Intake Total 200 1630 250 Output Total 10 Balance 190 1630 250 Weight 49.442 kg Intake: IV 1380 Ampicillin-Sulbactam 3 gm 100 In Sodium Chloride 0.9% 100 ml @ 100 mls/hr IVPB Q6HR SARAH Rx#:[id number] Sodium Chloride 0.9% 1, 1280 000 ml @ 80 mls/hr IV . [id number] [facility] Rx#:[id number] Oral 200 250 250 Output: Drainage 10 Left Buttock 10 Other: Voiding Method Toilet Toilet # Voids 2 2 # Bowel Movements 1 1 - Constitutional General appearance: Present: cooperative, no acute distress - EENT ENT: Present: hearing grossly normal - Neck Neck: Present: normal ROM - Respiratory Details: No difficulty with respiration - Gastrointestinal Gastrointestinal Comment(s): Soft, nontender, nondistended, no rebound, no guarding, IR drain in place with continued drainage - Psychiatric Psychiatric: Present: A&O x's 3 - Labs CBC & Chem 7: 12/11/17 07:31 12/11/17 07:31 Labs: Abnormal Lab Results - Last 24 Hours (Table) 12/11/17 12/11/17 Range/Units 07:31 07:31 RBC 3.71 L (4.30-5.90) m/uL Hgb 12.0 L (13.0-17.5) gm/dL Hct 36.9 L (39.0-53.0) % Neutrophils # 8.7 H (1.3-7.7) k/uL Lymphocytes # 0.8 L (1.0-4.8) k/uL Sodium 135 L (137-145) mmol/L BUN 5 L (9-20) mg/dL Calcium 8.3 L (8.4-10.2) mg/dL Microbiology - Last 24 Hours (Table) 12/08/17 14:00 Blood Culture - Preliminary Blood No Growth after 48 hours Assessment and Plan (1) Pelvic abscess Narrative/Plan: 42-year-old male with pelvic abscess likely secondary to diverticulitis - IR drain in place, continued drainage - Advance to soft diet - Continue antibiotics, leukocytosis resolved, infectious disease recommendations appreciated - Will discuss with infectious disease plan for outpatient regimen of antibiotic treatment and plan for elective surgical resection of his colon in the future Current Visit: Yes Status: Acute Code(s): [id number] - SNOMED Code(s): 524219342
--- NOTE | 2017-12-11 12:49 | PN ---
PROGRESS NOTE DATE OF SERVICE: 12/11/2017. REASON FOR FOLLOWUP: Pelvic abscess, peridiverticular. INTERVAL HISTORY: The patient is afebrile, he is breathing comfortably. He is complaining of pain mostly in his left gluteal area at the site of the drainage catheter. Denies having any chest pain, shortness of breath or cough. PHYSICAL EXAMINATION: Blood pressure 103/68 with a pulse of 82, temperature 99.4. He is 98% on room air. General description is a middle-aged male, lying in bed in no distress. RESPIRATORY SYSTEM: Unlabored breathing, clear to auscultation anteriorly. HEART: S1, S2. Regular rate and rhythm. ABDOMEN: Soft, no tenderness. EXTREMITIES: No edema of the feet. LABS: Hemoglobin 12.1, white count of 10.5 with a BUN of 5, creatinine 0.74. DIAGNOSTIC IMPRESSION AND PLAN: Patient with pelvic abscess, peridiverticular related, failing outpatient Augmentin therapy, currently on Unasyn 3 g q.6. We are waiting for the culture to finalize to determine discharge medical therapy, more likely IV. Continue supportive care. MMODL / IJN: [id number] /
--- NOTE | 2017-12-11 16:46 | P.PN ---
Subjective Progress Note Date: 12/11/17 Progress note being dictated for Dr. Ghotra Interval history:42-year-old gentleman the recently discharged from [facility] after he was treated for diverticulitis about 2 weeks ago started having abdominal pain again about 11 days ago patient was treated with Augmentin. Patient was seen by Dr. Lee and a had a colonoscopy which showed diverticulosis at that time patient also had a hiatal hernia. Patient had a CAT scan of the abdomen here which showed abscess in the sigmoid colon area surgery and interventional radiology were consulted. Patient denied any fever chills patient has a left lower quadrant severe 10/10 abdominal pain which is better now with pain medications. Patient has not been eating well because of his severe pain in the abdomen and not feeling well. Patient denied any diarrhea patient is also comparing of cough with a low sputum production patient is a smoker does have wheezing on exam. Review of Systems REVIEW OF SYSTEMS: CONSTITUTIONAL: No fever, no malaise, no fatigue. HEENT: No recent visual problems or hearing problems. Denied any sore throat. CARDIOVASCULAR: No chest pain, orthopnea, PND, no palpitations, no syncope. PULMONARY: No shortness of breath, no hemoptysis. GASTROINTESTINAL: As mentioned in HPI NEUROLOGICAL: No headaches, no weakness, no numbness. HEMATOLOGICAL: Denies any bleeding or petechiae. GENITOURINARY: Denies any burning micturition, frequency, or urgency. MUSCULOSKELETAL/RHEUMATOLOGICAL: Denies any joint pain, swelling, or any muscle pain. ENDOCRINE: Denies any polyuria or polydipsia. The rest of the 14-point review of systems is negative. 12/09/[address]-guided abscess drainage with interventional radiology. Tolerated procedure well. Cultures sent. Maintained on IV antibiotics, WBC improving. Reports improving abdominal pain. Denies nausea vomiting. no bowel movement. 12/10/2017. Pelvic abscess drain with thick dark brownish small amount of drainage. significant improvement in abdominal pain. Tolerating clear liquid diet. Denies nausea vomiting. Multiple episodes of diarrhea. Maintained on IV antibiotics. Afebrile, WBC within normal limits. 12/11/17 minimal purulent drainage overnight. Drainage increased after tube flushed . Afebrile, Tmax 99.4. Maintained on IV antibiotics. Final cultures pending. Ambulating in room, complaining of"charley horse pain" that initiates at site of catheter in the left gluteal and radiates down to his thigh. Denies chest pain, palpitations, shortness of breath. Denies nausea, vomiting. Denies abdominal pain. Loose stools. Objective - Vital Signs Vital signs: Vital Signs Temp 98.6 F 12/11/17 14:27 Pulse 91 12/11/17 15:04 Resp 20 12/11/17 15:04 BP 125/81 12/11/17 14:27 Pulse Ox 99 12/11/17 14:27 Intake & Output 12/10/17 12/11/17 12/11/17 18:59 06:59 18:59 Intake Total 200 1630 250 Output Total 10 Balance 190 1630 250 Weight 49.442 kg Intake: IV 1380 Ampicillin-Sulbactam 3 gm 100 In Sodium Chloride 0.9% 100 ml @ 100 mls/hr IVPB Q6HR [facility] Rx#:[id number] Sodium Chloride 0.9% 1, 1280 000 ml @ 80 mls/hr IV . [id number] [facility] Rx#:[id number] Oral 200 250 250 Output: Drainage 10 Left Buttock 10 Other: Voiding Method Toilet Toilet # Voids 2 2 3 # Bowel Movements 1 1 3 - Exam GENERAL: The patient is alert and oriented x3, not in any acute distress. Well developed, well nourished. HEENT: Pupils are round and equally reacting to light. EOMI. No scleral icterus. No conjunctival pallor. Normocephalic, atraumatic. CARDIOVASCULAR: S1 and S2 present. No murmurs, rubs, or gallops. PULMONARY: Bilateral diminished with bibasilar crackles appreciated ABDOMEN: Minimal left lower quadrant tenderness,no rebound or rigidity. MUSCULOSKELETAL: No joint swelling or deformity. EXTREMITIES: No cyanosis, clubbing, or pedal edema. NEUROLOGICAL: Gross neurological examination did not reveal any focal deficits. SKIN: No rashes. - Labs CBC & Chem 7: 12/11/17 07:31 12/11/17 07:31 Labs: Abnormal Lab Results - Last 24 Hours (Table) 12/11/17 12/11/17 Range/Units 07:31 07:31 RBC 3.71 L (4.30-5.90) m/uL Hgb 12.0 L (13.0-17.5) gm/dL Hct 36.9 L (39.0-53.0) % Neutrophils # 8.7 H (1.3-7.7) k/uL Lymphocytes # 0.8 L (1.0-4.8) k/uL Sodium 135 L (137-145) mmol/L BUN 5 L (9-20) mg/dL Calcium 8.3 L (8.4-10.2) mg/dL Microbiology - Last 24 Hours (Table) 12/08/17 14:00 Blood Culture - Preliminary Blood No Growth after 48 hours Assessment and Plan Assessment: -Abdominal pain due to diverticular abscess ,status post abscess drain placement , -Leukocytosis: Secondary to diverticular abscess, resolved -Bronchitis with possibly of undiagnosed COPD Plan: Continue on current medication regime ,monitoring. Maintain IV antibiotics. Diet advanced to soft as per surgery. Increase activity as tolerated. Discharge planning in progress, awaiting final culture results. The impression and plan of care has been dictated as directed. : I performed a history and examination of this patient, discussed the same with the dictator. I agree with the dictator's note ,documented as a scribe. Any additional findings or plans will be noted.
[2017-12-12] MEDS: metroNIDAZOLE-NS PMX 500 MG in SALINE 1 100ML.BAG IVPB SCH (00:13)
[2017-12-12] MEDS: HYDROcodone/APAP 5-325MG 1 EACH TAB PO PRN ×4 (04:20→21:15)
[2017-12-12] MEDS: AMPICILLIN-SULBACTAM 3 GM in SODIUM CHLORIDE 0.9% 100 ML IVPB SCH ×4 (05:21→23:39)
[2017-12-12] MEDS: MORPHINE ORAL SOLN 10 MG/5 ML CUP PO PRN ×4 (05:26→23:42)
[2017-12-12] MEDS: SYMBICORT 80-4.5 MCG INHALER INHALATION SCH ×2 (07:37→19:31)
[2017-12-12 07:43] LABS: Basophils # (A) 0.1 k/uL (0-0.2); Basophils % (A) 0 %; Eosinophils # (A) 0.1 k/uL (0-0.7); Eosinophils % (A) 1 %; HCT 35.5 % (39.0-53.0); HGB 12.3 gm/dL (13.0-17.5); Lymphocytes % (A) 9 %; MCH 33.6 pg (25.0-35.0); MCHC 34.7 g/dL (31.0-37.0); MCV 96.7 fL (80.0-100.0); Mean Platelet Volume 6.5; Monocytes # (A) 0.8 k/uL (0-1.0); Monocytes % (A) 7 %; Neutrophils # (A) 8.2 k/uL (1.3-7.7); Neutrophils % (A) 80 %; Platelet Count 369 k/uL (150-450); RBC 3.67 m/uL (4.30-5.90); RDW 12.3 % (11.5-15.5); WBC 10.2 k/uL (3.8-10.6)
[2017-12-12 07:57] LABS: Anion Gap 10 mmol/L; Blood Urea Nitrogen 6 mg/dL (9-20); Calcium 8.6 mg/dL (8.4-10.2); Carbon Dioxide 29 mmol/L (22-30); Chloride 100 mmol/L (98-107); Glucose 102 mg/dL (74-99); Potassium 3.8 mmol/L (3.5-5.1); Sodium 139 mmol/L (137-145)
[2017-12-12] MEDS: metroNIDAZOLE 500 MG TAB PO SCH ×3 (08:01→23:39)
[2017-12-12] MEDS: NICOTINE 21MG/24HR PATCH TRANSDERM SCH (08:01)
[2017-12-12] MEDS: PANTOPRAZOLE 40 MG TABLET PO SCH (08:01)
--- NOTE | 2017-12-12 12:04 | P.PN ---
Subjective Progress Note Date: 12/12/17 Patient seen and examined at bedside. States abdominal pain is improved. Is tolerating a soft diet. He has had bowel function that is brown and liquid. Denies any nausea and vomiting. Denies fevers, chills, chest pain or shortness of breath. IR drain is in place with 35 mL of output over the last 24 hours. Objective - Vital Signs Vital signs: Vital Signs Temp 98.1 F 12/12/17 06:28 Pulse 85 12/12/17 06:28 Resp 16 12/12/17 06:39 BP 111/78 12/12/17 06:28 Pulse Ox 98 12/12/17 06:28 Intake & Output 12/11/17 12/12/17 12/12/17 18:59 06:59 18:59 Intake Total 250 100 250 Output Total 10 10 15 Balance 240 90 235 Weight 49.442 kg 49.442 kg 49.442 kg Intake: IV 100 Ampicillin-Sulbactam 3 gm 100 In Sodium Chloride 0.9% 100 ml @ 100 mls/hr IVPB Q6HR [facility] Rx#:[id number] Oral 250 250 Output: Drainage 10 10 15 Left Buttock 10 10 15 Other: Voiding Method Toilet Toilet # Voids 3 1 # Bowel Movements 3 - Constitutional General appearance: Present: cooperative, no acute distress - Respiratory Details: No difficulty with respiration - Gastrointestinal Gastrointestinal Comment(s): Soft, nontender, nondistended, no rebound, no guarding - Psychiatric Psychiatric: Present: A&O x's 3, appropriate affect, intact judgment & insight - Labs CBC & Chem 7: 12/12/17 06:54 12/12/17 06:54 Labs: Abnormal Lab Results - Last 24 Hours (Table) 12/12/17 12/12/17 Range/Units 06:54 06:54 RBC 3.67 L (4.30-5.90) m/uL Hgb 12.3 L (13.0-17.5) gm/dL Hct 35.5 L (39.0-53.0) % Neutrophils # 8.2 H (1.3-7.7) k/uL BUN 6 L (9-20) mg/dL Glucose 102 H (74-99) mg/dL Microbiology - Last 24 Hours (Table) 12/08/17 14:00 Blood Culture - Preliminary Blood No Growth after 72 hours 12/09/17 10:50 Gram Stain - Preliminary Aspirate Body Fluid Culture - Preliminary Gram Neg Bacilli Streptococcus species Assessment and Plan (1) Pelvic abscess Narrative/Plan: 42-year-old male with pelvic abscess likely secondary to diverticulitis - IR drain in place, continued drainage - Continue soft diet - Continue antibiotics, leukocytosis resolved. I did discuss the case with infectious disease, we will plan for appropriate antibiotics once final culture studies have returned. -He will likely be discharged with drain in place. He will follow up in the clinic for drain removal. Current Visit: Yes Status: Acute Code(s): [id number] - SNOMED Code(s): 109004581
--- NOTE | 2017-12-12 13:56 | PN ---
PROGRESS NOTE DATE OF SERVICE: 12/12/2017 REASON FOR FOLLOWUP: Pelvic abscess from ruptured diverticulitis. INTERVAL HISTORY: The patient is afebrile. He is breathing comfortably. Denies having any chest pain. No shortness of breath, cough, abdominal pain has improved. No nausea, vomiting, or any diarrhea. PHYSICAL EXAMINATION: Blood pressure 111/72 with a pulse of 85, temperature 98.1, he is 98% on room air. General description is a middle-aged male, lying in bed in no distress. RESPIRATORY SYSTEM: Unlabored breathing, clear to auscultation anteriorly/ HEART: S1, S2. Regular rate and rhythm. ABDOMEN: Soft, no tenderness. LABS: Hemoglobin 12.3, white count of 10.2 with a BUN of 6, creatinine 0.69. DIAGNOSTIC IMPRESSION AND PLAN: Patient with a pelvic abscess from ruptured diverticulitis, status post drainage of this abscess, culture is showing a Streptococcus species with gram-negative, we are waiting for the final ID of this pathogen to determine his discharge antibiotic which is more likely oral as I did review his CT head with the radiologist and it shows almost complete resolution of this abscess in the pelvic area and will avoid the PICC line. MMODL / IJN: [id number] /
--- NOTE | 2017-12-12 19:16 | P.DS ---
<Brielle Whittington - Last Filed: 12/12/17 19:08> Providers Date of admission: 12/08/17 15:48 Expected date of discharge: 12/12/17 Attending physician: Jessica Ghotra Consults: 12/08/17 15:48 Consult Physician Stat Consulting Provider: Marcio Erickson Consult Reason/Comments: pelvic abcess Do you want consulting provider notified?: Already Contacted 12/10/17 06:56 Consult Physician Urgent Consulting Provider: Bernice Mendiola Consult Reason/Comments: pelvic abscess Do you want consulting provider notified?: Yes Primary care physician: Stated None Dr. Eli Vizcaino Hospital Course: Final Diagnoses: -Abdominal pain due to diverticular abscess ,status post abscess drain placement , -Leukocytosis: Secondary to diverticular abscess, resolved -Bronchitis with possibly of undiagnosed COPD Hospital course: This is a 42-year-old gentleman the recently discharged from [facility] after he was treated for diverticulitis about 2 weeks ago started having abdominal pain again about 11 days ago patient was treated with Augmentin. Patient was seen by Dr. Lee and a had a colonoscopy which showed diverticulosis at that time patient also had a hiatal hernia. Patient had a CAT scan of the abdomen here which showed abscess in the sigmoid colon area surgery and interventional radiology were consulted. Evaluated by both surgery and infectious disease. Patient underwent CT-guided abscess drainage with interventional radiology. Tolerated procedure well. Maintained on IV antibiotics as per infectious disease. Significant clinical improvement. Patient is being discharged home once final culture results are in today, and clearance obtained from both surgery and infectious disease. Discharge antibiotics as per ID. Patient is being discharged home in a stable condition with guarded prognosis. Physical Exam:VSS, alert and oriented 3, no acute distress. CV: Regular S1 and S2. LUNGS: Diminished with fine bibasilar crackles.: ABD: Soft, minimal left lower quadrant tenderness, no rebound or rigidity, positive BS. NEURO: No focal deficits. Microbiology 12/08/17 14:00 Blood Blood Culture - Preliminary No Growth after 96 hours 12/09/17 10:50 Aspirate Anaerobic Culture - Final Anaerobic Gm Negative Bacilli Anaerobic Gm Negative Bacilli#2 12/09/17 10:50 Aspirate Gram Stain - Preliminary 12/09/17 10:50 Aspirate Body Fluid Culture - Preliminary Gram Neg Bacilli Streptococcus species Microbiology 12/08/17 14:00 Blood Blood Culture - Preliminary No Growth after 96 hours 12/09/17 10:50 Aspirate Anaerobic Culture - Final Anaerobic Gm Negative Bacilli Anaerobic Gm Negative Bacilli#2 12/09/17 10:50 Aspirate Gram Stain - Preliminary 12/09/17 10:50 Aspirate Body Fluid Culture - Preliminary Gram Neg Bacilli Streptococcus species The impression and plan of care has been dictated as directed. : I performed a history and examination of this patient, discussed the same with the dictator. I agree with the dictator's note ,documented as a scribe. Any additional findings or plans will be noted. Time taken: 35 minutes Patient Condition at Discharge: Stable Plan - Discharge Summary Discharge Rx Participant: Yes New Discharge Prescriptions: New Nicotine 21Mg/24Hr Patch [Habitrol] 1 patch TRANSDERM DAILY #30 patch Pantoprazole [Protonix] 40 mg PO DAILY #30 tablet. Budesonide/Formoterol Fumarate [Symbicort 80-4.5 Mcg Inhaler] 2 puff INHALATION BID #1 inhaler Albuterol Sulfate [Proair Hfa] 2 puff INHALATION QID #1 inhaler HYDROcodone/APAP 5-325MG [[place] 5-325] 1 each PO Q6HR PRN #20 tab PRN Reason: Pain Discharge Medication List Albuterol Sulfate [Proair Hfa] 2 puff INHALATION QID #1 inhaler 12/12/17 [Rx] Budesonide/Formoterol Fumarate [Symbicort 80-4.5 Mcg Inhaler] 2 puff INHALATION BID #1 inhaler 12/12/17 [Rx] HYDROcodone/APAP 5-325MG [[place] 5-325] 1 each PO Q6HR PRN #20 tab 12/12/17 [Rx] Nicotine 21Mg/24Hr Patch [Habitrol] 1 patch TRANSDERM DAILY #30 patch 12/12/17 [ Rx] Pantoprazole [Protonix] 40 mg PO DAILY #30 tablet. 12/12/17 [Rx] Follow up Appointment(s)/Referral(s): Marcio Erickson DO [Doctor of Osteopathic Medicine] - 1 Week Eli Vizcaino MD [REFERRING] - 3 Days Bernice Mendiola MD [STAFF PHYSICIAN] - 1 Week Ambulatory/Diagnostic Orders: Complete Blood Count w/diff [LAB.AMB] Time Frame: 3 Days, Location: Determined By Patient Patient Instructions/Handouts: Diverticulitis (DC), Diverticulitis Diet (GEN) Activity/Diet/Wound Care/Special Instructions: Antibiotics/Flagyl as per ID . Pending clearance from both ID and surgery. No smoking, cessation information provided.Activity as tolerated. Pt has work release note from Dr. Erickson. Discharge with drain and keep track of output. Dr. Erickson will remove at followup appt. Flush drain twice daily with 10cc saline. <Jessica Ghotra - Last Filed: 12/13/17 12:26> Hospital Course: This is a progress note
[2017-12-13] MEDS: HYDROcodone/APAP 5-325MG 1 EACH TAB PO PRN ×2 (03:05→09:16)
[2017-12-13] MEDS: AMPICILLIN-SULBACTAM 3 GM in SODIUM CHLORIDE 0.9% 100 ML IVPB SCH ×2 (05:47→11:50)
[2017-12-13 06:05] VITALS: TEMP 97
[2017-12-13] MEDS: SYMBICORT 80-4.5 MCG INHALER INHALATION SCH (08:26)
[2017-12-13] MEDS: NICOTINE 21MG/24HR PATCH TRANSDERM SCH (08:53)
[2017-12-13] MEDS: metroNIDAZOLE 500 MG TAB PO SCH (08:55)
[2017-12-13] MEDS: PANTOPRAZOLE 40 MG TABLET PO SCH (08:55)
--- NOTE | 2017-12-13 12:27 | P.DS ---
Providers Date of admission: 12/08/17 15:48 Attending physician: Jessica Ghotra Consults: 12/08/17 15:48 Consult Physician Stat Consulting Provider: aMrcio Erickson Consult Reason/Comments: pelvic abcess Do you want consulting provider notified?: Already Contacted 12/10/17 06:56 Consult Physician Urgent Consulting Provider: Bernice Mendiola Consult Reason/Comments: pelvic abscess Do you want consulting provider notified?: Yes Primary care physician: Stated None Hospital Course: Awaiting on the wound cultures .once we get the won't cultures patient will be discharged. Antibiotics will be decided by infectious disease. Patient Condition at Discharge: Stable Plan - Discharge Summary Discharge Rx Participant: Yes New Discharge Prescriptions: New Nicotine 21Mg/24Hr Patch [Habitrol] 1 patch TRANSDERM DAILY #30 patch Pantoprazole [Protonix] 40 mg PO DAILY #30 tablet. Budesonide/Formoterol Fumarate [Symbicort 80-4.5 Mcg Inhaler] 2 puff INHALATION BID #1 inhaler Albuterol Sulfate [Proair Hfa] 2 puff INHALATION QID #1 inhaler HYDROcodone/APAP 5-325MG [[place] 5-325] 1 each PO Q6HR PRN #20 tab PRN Reason: Pain Discharge Medication List Albuterol Sulfate [Proair Hfa] 2 puff INHALATION QID #1 inhaler 12/12/17 [Rx] Budesonide/Formoterol Fumarate [Symb[place]ort 80-4.5 Mcg Inhaler] 2 puff INHALATION BID #1 inhaler 12/12/17 [Rx] HYDROcodone/APAP 5-325MG [[place] 5-325] 1 each PO Q6HR PRN #20 tab 12/12/17 [Rx] Nicotine 21Mg/24Hr Patch [Habitrol] 1 patch TRANSDERM DAILY #30 patch 12/12/17 [ Rx] Pantoprazole [Protonix] 40 mg PO DAILY #30 tablet. 12/12/17 [Rx] Follow up Appointment(s)/Referral(s): Marcio Erickson DO [Doctor of Osteopathic Medicine] - 1 Week Eli Vizcaino MD [REFERRING] - 3 Days Bernice Mendiola MD [STAFF PHYSICIAN] - 1 Week Ambulatory/Diagnostic Orders: Complete Blood Count w/diff [LAB.AMB] Time Frame: 3 Days, Location: Determined By Patient Patient Instructions/Handouts: Diverticulitis (DC), Diverticulitis Diet (GEN) Activity/Diet/Wound Care/Special Instructions: Antibiotics/Flagyl as per ID . Pending clearance from both ID and surgery. No smoking, cessation information provided.Activity as tolerated. Pt has work release note from Dr. Erickson. Discharge with drain and keep track of output. Dr. Erickson will remove at followup appt. Flush drain twice daily with 10cc saline.
--- NOTE | 2017-12-13 13:19 | P.PN ---
Progress Note - Text Progress Note Date: 12/13/17 The patient's been afebrile. Awaiting final recommendations of antibiotics from infectious disease. The patient can follow-up with Dr. Erickson as outpatient.
[2017-12-13 14:53] VITALS: BP 106/71; PULSE 89; RESP 20
== END 2017-12-13 17:07 | disposition home or self-care (01) | DRG 392 ==
LOC: EC 12:53 → 4MS4W 15:48
PROVIDERS: ADMIT Internal Medicine; ATTEND Internal Medicine
PROC: 0W9J30Z Drainage of Pelvic Cavity with Drainage Device, Percutaneous Approach (ICD-10-PCS; principal; 2017-12-09)
DX: K57.80 Diverticulitis of intestine, part unspecified, with perforation and abscess without bleeding (principal); F17.200 Nicotine dependence, unspecified, uncomplicated; K21.9 Gastro-esophageal reflux disease without esophagitis; K44.9 Diaphragmatic hernia without obstruction or gangrene; J44.9 Chronic obstructive pulmonary disease, unspecified
CPT/HCPCS: 36415; 74177; 75989; 77012; 80048; 80053; 82150; 82272; 82550; 82553; 83605; 83690; 84484; 85025; 85027; 85610; 85730; 86850; 86900; 86901; 87040; 87070; 87075; 87077; 87186; 87205; 87324; 96361; 96365; 96375; 96376; 99291

== ENCOUNTER → 2017-12-26 | Outpatient (CLI) | payer BC ==
--- NOTE | 2017-12-26 12:57 | CT ---
EXAMINATION TYPE: CT pelvis w con DATE OF EXAM: 12/26/2017 COMPARISON: 12/08/2017 HISTORY: 42-year-old male follow up to pelvic abscess TECHNIQUE: Contiguous axial scanning of the pelvis following administration of 100 ml Omnipaque 300 I V contrast. Delayed images through the bladder and coronal/sagittal reconstructions performed. CT DLP: 488 mGycm Automated exposure control for dose reduction was used. FINDINGS: Visualized liver, gallbladder, kidneys, and pancreas show no gross anomaly. No dilated small bowel. There is residual moderate wall thickening along the mid sigmoid colon with a djacent left-sided pericolonic abscess. This is smaller in the interval measuring 2.1 x 2.4 cm versus 5.5 x 5.0 cm, previously. There is a thickened rind of peripheral enhancement in the abscess contain s both fluid and air. New in the interval is abnormal soft tissue thickening and inflammation with irregular enhancement an d foci of air extending along the previous catheter tract particularly involving the piriformis but a lso extending anteriorly to involve the posterior margin of the obturator internus. The overall dimen charity of the inflammatory collection is 6.2 x 3.5 cm. A small poorly formed abscess is present within measuring 1.9 cm, axial image 37. Some adjacent fluid-filled small bowel loops hanging in the anterior pelvis are noted suggesting a mi ld regional ileus. Bones: No osseous destructive process. IMPRESSION: 1. RESIDUAL MODERATE WALL THICKENING OF THE MID SIGMOID COLON SUGGESTS CONTINUED COLONIC INFLAMMATION /COLITIS. 2. PERSISTENT BUT SMALLER PERICOLONIC ABSCESS ALONG THE LEFT LATERAL ASPECT OF THE MID SIGMOID CURREN TLY MEASURING 2.4 X 2.1 CM VERSUS 5.4 CM, PREVIOUSLY. 3. NEW PHLEGMON, MYOSITIS, AND EARLY ABSCESS FORMATION ALONG THE PREVIOUS TRANSGLUTEAL/TRANSSCIATIC C ATHETER TRACT. THERE IS INVOLVEMENT OF THE LEFT PIRIFORMIS, POSTERIOR MARGIN OF THE LEFT OBTURATOR IN TERNUS, AND MYOSITIS OF THE OVERLYING GLUTEAL MUSCULATURE. TOTAL DIMENSION OF THE PHLEGMON MEASURES U P TO 6.2 CM AND THERE IS AN EARLY DEVELOPING 1.9 CM ABSCESS. 4. RECOMMEND COLONOSCOPY TO EXCLUDE UNDERLYING COLONIC NEOPLASM ONCE INFECTION IS CONTROLLED AND WHEN PATIENT ABLE.
== END | disposition home or self-care (01) ==
LOC: RADCTMAIN 11:29
PROVIDERS: ATTEND Internal Medicine Infectious Disease
DX: M60.9 Myositis, unspecified (principal); K63.0 Abscess of intestine; K63.89 Other specified diseases of intestine
CPT/HCPCS: 72193; Q9967

== ENCOUNTER → 2018-01-09 | Outpatient (CLI) | payer BC ==
--- NOTE | 2018-01-09 20:57 | CT ---
EXAMINATION TYPE: CT pelvis w con DATE OF EXAM: 01/09/2018 COMPARISON: 12/26/2017 HISTORY: Pelvic abcess, Diverticulitis CT DLP: 260 mGycm Automated exposure control for dose reduction was used. CONTRAST: Performed with IV Contrast, patient injected with 100 mL of Isovue 300. FINDINGS: There is oral contrast also. Visualized kidneys appear normal. There is no retroperitoneal adenopathy. There is no sign of ascites . Bladder distends smoothly. Small bowel appears normal. There is oral contrast in the right colon th at appears normal. Appendix appears to be visualized and appears normal. Prostate is large and measures 4.7 cm. Bladder distends smoothly. There is a complex density in the posterior pelvis on the left side. This measures 6 x 3 cm and appea rs to be an abscess that is posterior to the sigmoid colon. There is mild wall thickening of the mid sigmoid colon. IMPRESSION: COMPLEX MASS THAT CONTAINS AIR BUBBLES ANTERIOR TO THE SCIATIC NOTCH AND POSTERIOR TO THE MID SIGMOID COLON CONSISTENT WITH AN ABSCESS THAT IS NOT CHANGE IN SIZE COMPARED TO LAST EXAM. NO EVIDENCE OF AN Y NEW MASS. THERE IS AN APPARENT 2.5 CM ABSCESS POSTERIOR TO THE SIGMOID COLON ON THE OLD EXAM THAT I S ESSENTIALLY CLEARED ON TODAY'S EXAM. THERE IS MILD SIGMOID WALL THICKENING CONSISTENT WITH NONSPECIFIC COLITIS THAT IS LITTLE CHANGED.
== END ==
LOC: RADCTMAIN 17:16
PROVIDERS: ATTEND Internal Medicine Infectious Disease
DX: R19.09 Other intra-abdominal and pelvic swelling, mass and lump (principal); K63.89 Other specified diseases of intestine
CPT/HCPCS: 72193; Q9967

== ENCOUNTER → 2018-01-23 | Outpatient (CLI) | payer BC ==
--- NOTE | 2018-01-24 11:19 | CT ---
EXAMINATION TYPE: CT pelvis w con DATE OF EXAM: 01/23/2018 COMPARISON: 01/09/2018 HISTORY: Follow-up pelvic abscess. CT DLP: 436 mGycm Automated exposure control for dose reduction was used. CONTRAST: Performed with IV Contrast, patient injected with 100 mL of Isovue M300. Contrast enhanced CT of the pelvis is submitted. Soft tissue window settings submitted. FINDINGS: Previously noted abscess anterior to the left sciatic notch has resolved. There is persistent edema a nd phlegmon however. No residual abscess is identified within the pelvis at this point in time. Persi stent sigmoid wall thickening and diverticulosis. Small bowel is visualized appears normal caliber. N o evidence for free air within the [id number]. Lower pole of the kidneys are unremarkable. IMPRESSION: Previously noted abscess anterior to the left sciatic notch has resolved. There is persistent edema a nd phlegmon.
== END | disposition home or self-care (01) ==
LOC: RADCTMAIN 17:20
PROVIDERS: ATTEND Internal Medicine Infectious Disease
DX: L02.818 Cutaneous abscess of other sites (principal)
CPT/HCPCS: 72193; Q9967

== ENCOUNTER → 2019-02-02 | Outpatient (CLI) | payer BC ==
--- NOTE | 2019-02-02 09:33 | CT ---
EXAMINATION TYPE: CT abdomen pelvis w con DATE OF EXAM: 02/02/2019 COMPARISON: Multiple prior CT pelvis as well as prior CT abdomen and pelvis 12/08/2012 HISTORY: 44-year-old male follow-up Diverticulitis of intestines TECHNIQUE: Contiguous axial scanning of the abdomen and pelvis following administration of 100 ml Iso elidia 300 IV contrast. Delayed images through the kidneys and coronal/sagittal reconstructions perform ed. CT DLP: 621 mGycm Automated exposure control for dose reduction was used. FINDINGS: Heart normal size without pericardial effusion. Lung bases clear without pleural effusion. No focal liver lesion or biliary ductal dilatation. Portal venous system is patent. Gallbladder, adrenal glands, kidneys, spleen, and pancreas appear within normal limits. No dilated small bowel, free fluid, or free air. No mesenteric or retroperitoneal lymphadenopathy. No rmal appendix. Oral contrast progressed to the proximal sigmoid. Scattered left-sided colonic diverticulosis. There is evidence of prior resection and reanastomosis of the rectosigmoid junction. There is a promi nent blind end loop of colon in this region suggesting a side to end anastomosis and should be correl ated with surgical technique. The previously seen phlegmonous thickening and inflammatory changes in the left sciatic notch appears to have largely resolved. There is minimal residual thickening of the left piriformis muscle. No res idual abscess in the left side of the pelvis. Bladder is urine distended. Prostate gland measures 5.0 cm wide. No abnormal fluid collection in the pelvis or pelvic lymphadenopathy. Bone: No osseous destructive process. IMPRESSION: 1. INTERVAL DISTAL COLONIC RESECTION WITH RECTOSIGMOID ANASTOMOSIS. THERE IS A PROMINENT BLIND END LO OP OF COLON IN THIS REGION SUGGESTING SIDE TO END ANASTOMOSIS. THIS SHOULD BE CONFIRMED WITH SURGICAL TECHNIQUE. 2. INTERVAL RESOLUTION OF THE PREVIOUSLY SEEN PHLEGMONOUS THICKENING AND INFLAMMATORY CHANGES AT THE LEFT SCIATIC NOTCH. MINIMAL RESIDUAL THICKENING OF THE LEFT PIRIFORMIS MUSCLE MAY BE CHRONIC CHANGE N OW. NO RESIDUAL ABSCESS WITHIN THE LEFT SIDE OF THE PELVIS.
== END | disposition home or self-care (01) ==
LOC: RADCTMAIN 07:09
PROVIDERS: ATTEND Family Medicine
DX: K57.92 Diverticulitis of intestine, part unspecified, without perforation or abscess without bleeding (principal); Z98.890 Other specified postprocedural states
CPT/HCPCS: 74177; Q9967 ×2

== ENCOUNTER → 2021-10-23 | Outpatient (CLI) | payer OTHER ==
--- NOTE | 2021-10-23 11:21 | XR ---
EXAMINATION TYPE: XR foot complete LT DATE OF EXAM: 10/23/2021 CLINICAL HISTORY: Slip and fall injury with pain and swelling. TECHNIQUE: Frontal, lateral, and oblique images of the left foot are obtained. COMPARISON: None FINDINGS: There is no acute fracture/dislocation evident in the left foot. The joint spaces in the left foot appear within normal limits. The overlying soft tissue appears unremarkable. IMPRESSION: There is no acute fracture or dislocation in the left foot.
== END | disposition home or self-care (01) ==
LOC: RADXRMAIN 10:30
PROVIDERS: ATTEND Emergency Medicine
DX: S99.922A Unspecified injury of left foot, initial encounter (principal); M79.89 Other specified soft tissue disorders; W01.0XXA Fall on same level from slipping, tripping and stumbling without subsequent striking against object, initial encounter

== ENCOUNTER 2024-07-28 08:12 | Emergency (ER) | payer BC ==
[2024-07-28] MEDS: SODIUM CHLORIDE 0.9% 1,000 ML IV STA (08:46)
[2024-07-28] MEDS: ONDANSETRON 4 MG/2 ML VIAL IVP STA (08:47)
[2024-07-28] MEDS: KETOROLAC 15 MG/ML 1 ML VIAL IVP STA (08:47)
[2024-07-28 09:00] LABS: Basophils % (A) 0 %; Eosinophils # (A) 0.1 k/uL (0-0.7); Eosinophils % (A) 1 %; HCT 44.3 % (39.0-53.0); HGB 14.5 gm/dL (13.0-17.5); Lymphocytes # (A) 0.7 k/uL (1.0-4.8); Lymphocytes % (A) 5 %; MCH 34.4 pg (25.0-35.0); MCHC 32.6 g/dL (31.0-37.0); MCV 105.3 fL (80.0-100.0); Macrocytosis Slight; Mean Platelet Volume 7.7; Monocytes # (A) 0.8 k/uL (0-1.0); Monocytes % (A) 6 %; Neutrophils % (A) 87 %; Platelet Count 136 k/uL (150-450); RDW 12.7 % (11.5-15.5); WBC 13.7 k/uL (3.8-10.6)
[2024-07-28 09:05] LABS: INR 0.8 (<1.2); Partial Thromboplastin Time 24.3 sec (22.0-30.0); Prothrombin Time 9.6 sec (10.0-12.5)
[2024-07-28 09:12] LABS: ALT 33 U/L (4-49); African American GFR (CKD) >90 (>60 ml/min/1.73 sqM); Albumin 4.8 g/dL (3.5-5.0); Anion Gap 8 mmol/L; Blood Urea Nitrogen 13 mg/dL (9-20); Calcium 9.1 mg/dL (8.4-10.2); Carbon Dioxide 26 mmol/L (22-30); Chloride 104 mmol/L (98-107); Glucose 127 mg/dL (74-99); Lipase 96 U/L (23-300); Non-African American GFR(CKD) >90 (>60 ml/min/1.73 sqM); Sodium 138 mmol/L (137-145); Total Bilirubin 1.5 mg/dL (0.2-1.3); Total Protein 7.4 g/dL (6.3-8.2)
[2024-07-28 09:14] LABS: Potassium 4.2 mmol/L (3.5-5.1)
[2024-07-28 09:15] LABS: AST 34 U/L (17-59); Alkaline Phosphatase 50 U/L (38-126)
--- NOTE | 2024-07-28 10:20 | CT ---
EXAMINATION TYPE: CT abdomen pelvis w con CT DLP: 505.2 mGycm, Automated exposure control for dose reduction was used. DATE OF EXAM: 07/28/2024 9:28 AM COMPARISON: CT abdomen pelvis 02/02/2019 CLINICAL INDICATION:Male, 49 years old with history of LLQ pain; LLQ pain, history of colitis TECHNIQUE: Standard CT of the abdomen and pelvis following the administration of 100 cc of Isovue 3 00 IV contrast material. Coronal and sagittal reformats were performed. FINDINGS: LOWER CHEST: Posterior dependent subsegmental atelectasis is noted. ABDOMEN LIVER: Enlarged measuring 18.4 cm in CC dimension. No focal lesion identified. GALLBLADDER AND BILE DUCTS: Unremarkable. PANCREAS: Unremarkable. SPLEEN: Unremarkable. ADRENAL GLANDS: Unremarkable. KIDNEYS AND URETERS: No evidence of hydronephrosis or renal calculus. The kidneys enhance symmetrical ly. Contrast is demonstrated within both collecting systems on the delayed phase. PELVIS BLADDER: Unremarkable REPRODUCTIVE: Coarse calcifications of the prostate gland are identified. ABDOMEN & PELVIS STOMACH AND BOWEL: Stomach and duodenum are unremarkable. Postsurgical changes of the rectosigmoid ju nction with anastomosis. Circumferential wall thickening of the jejunum identified in the left abdome n. Additional circumferential wall thickening with some surrounding fat stranding involving the dista l transverse colon. No pneumatosis. The appendix is within normal limits. No evidence of bowel obstru ction. PERITONEUM: No evidence of pneumoperitoneum or free fluid. VASCULATURE: Mild atherosclerotic calcifications are present throughout the abdominal aorta and its b ranches. No evidence of aortic aneurysm. MUSCULOSKELETAL: No acute osseous abnormalities LYMPH NODES: No evidence for lymphadenopathy. SOFT TISSUE/ABDOMINAL WALL: Unremarkable IMPRESSION: Findings of enterocolitis likely from an infectious or inflammatory process. No evidence for abscess. [facility], , 07/28/2024 10:18 AM
--- NOTE | 2024-07-28 11:07 | ED ---
Abdominal Pain HPI - General Chief Complaint: Abdominal Pain Stated Complaint: Abd pain Time Seen by Provider: 07/28/24 08:13 Source: patient, family, RN notes reviewed Mode of arrival: wheelchair Limitations: no limitations - History of Present Illness Initial Comments: 49-year-old male presents emergency department complaint of abdominal pain. Patient states that he has had worsening pain the last week or 2. Patient has a history of diverticulitis with abscess and resection by Dr. Erickson in 2018. Patient has had nausea, diarrhea abdominal pain. Patient states primary left lower quadrant. But does have pain diffusely. No fevers or chills no other complaints. - Related Data Previous Rx's Medication Instructions Recorded Amoxic-Pot Clav 875-125Mg 1 tab PO Q12HR #20 tab 07/28/24 [Augmentin 875-125] Ondansetron Odt [Zofran Odt] 4 mg PO Q8HR PRN #10 tab 07/28/24 Allergies Allergy/AdvReac Type Severity Reaction Status Date / Time No Known Allergies Allergy Verified 07/28/24 10:18 Review of Systems ROS Statement: Those systems with pertinent positive or pertinent negative responses have been documented in the HPI. ROS Other: All systems not noted in ROS Statement are negative. Past Medical History Past Medical History: GERD/Reflux Additional Past Medical History / Comment(s): recent told he had colitis. had egd/colonoscopy-diverticulosis/diverticulits, hiatal hernia, past bronchits History of Any Multi-Drug Resistant Organisms: None Reported Past Surgical History: Tonsillectomy Additional Past Surgical History / Comment(s): colonoscopy,egd, 2005 lt hand 3rd/4th finger sx d/t injury -pins since removed. Past Anesthesia/Blood Transfusion Reactions: No Reported Reaction Additional Past Anesthesia/Blood Transfusion Reaction / Comment(s): pt is independant. lives with his sig other antonio. no service. 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 Past Psychological History: No Psychological Hx Reported Smoking Status: Current every day smoker Past Alcohol Use History: Daily Past Drug Use History: Marijuana - Past Family History Mother Additional Family Medical History / Comment(s): djd, macular hole, gait dys funtion Father Family Medical History: Pneumonia General Exam Limitations: no limitations General appearance: alert, in no apparent distress Head exam: Present: atraumatic, normocephalic, normal inspection Eye exam: Present: normal appearance, PERRL, EOMI. Absent: scleral icterus, conjunctival injection, periorbital swelling Respiratory exam: Present: normal lung sounds bilaterally. Absent: respiratory distress, wheezes, rales, rhonchi, stridor Cardiovascular Exam: Present: regular rate, normal rhythm, normal heart sounds. Absent: systolic murmur, diastolic murmur, rubs, gallop, clicks GI/Abdominal exam: Present: soft, tenderness, normal bowel sounds. Absent: distended, guarding, rebound, rigid Course Vital Signs 07/28/24 07/28/24 08:16 10:22 Temperature 98.1 F Pulse Rate 83 73 Respiratory 18 16 Rate Blood Pressure 109/75 105/89 O2 Sat by Pulse 100 97 Oximetry Medical Decision Making - Medical Decision Making Was pt. sent in by a medical professional or institution (, PA, CASTING ROOM HELPER, urgent care, hospital, or [facility]...) When possible be specific @ -No Did you speak to anyone other than the patient for history (EMS, parent, family, police, friend...)? What history was obtained from this source @ -No Did you review nursing and triage notes (agree or disagree)? Why? @ -I reviewed and agree with nursing and triage notes Were old charts reviewed (outside hosp., previous admission, EMS record, old EKG, old radiological studies, urgent care reports/EKG's, [facility] records)? Report findings @ -Reviewed prior admission, surgical records Differential Diagnosis (chest pain, altered mental status, abdominal pain women, abdominal pain men, vaginal bleeding, weakness, fever, dyspnea, syncope, headache, dizziness, GI bleed, back pain, seizure, CVA, palpatations, mental health, musculoskeletal)? @ -Differential Abdominal Pain Men: Appendicitis, cholecystitis, diverticulosis, ischemic bowel, pancreatitis, hepatitis, UTI, gastroenteritis, AAA, incarcerated hernia, bowel obstruction, constipation, inflammatory bowel, hepatitis, peptic ulcer disease, splenic infarction, perforated viscus, testicular torsion, this is not meant to be an all-inclusive list EKG interpreted by me (3pts min.). @None X-rays interpreted by me (1pt min.). @ -None done CT interpreted by me (1pt min.). @ -CT he abdomen pelvis showing evidence of infectious colitis, no abscess or perforation U/S interpreted by me (1pt. min.). @ -None done What testing was considered but not performed or refused? (CT, X-rays, U/S, labs)? Why? @ -None What meds were considered but not given or refused? Why? @ -None Did you discuss the management of the patient with other professionals (professionals i.e. Dr., PA, CASTING ROOM HELPER, lab, RT, psych nurse, school social worker, airfield operations specialist, teacher, personal banking officer, binder caser)? Give summary @ -No Was smoking cessation discussed for >3mins.? @ -No Was critical care preformed (if so, how long)? @ -No Were there social determinants of health that impacted care today? How? (Homelessness, low income, unemployed, alcoholism, drug addiction, transportation, low edu. Level, literacy, decrease access to med. care, longterm, rehab)? @ -No Was there de-escalation of care discussed even if they declined (Discuss DNR or withdrawal of care, Hospice)? DNR status @ -No What co-morbidities impacted this encounter? (DM, HTN, Smoking, COPD, CAD, Cancer, CVA, ARF, Chemo, Hep., AIDS, mental health diagnosis, sleep apnea, morbid obesity)? @ -None Was patient admitted / discharged? Hospital course, mention meds given and route, prescriptions, significant lab abnormalities, going to OR and other pertinent info. @ -disharge patient feels improved at this time. Patient offered admission versus discharge. Patient prefers to be discharged, oral antibiotics were ordered patient will be given follow-up with Dr. Erickson, Dr. Pacheco. Return transfer discussed. Undiagnosed new problem with uncertain prognosis? @ -No Drug Therapy requiring intensive monitoring for toxicity (Heparin, Nitro, Insulin, Cardizem)? @ -No Were any procedures done? @ -No Diagnosis/symptom? @Colitis Acute, or Chronic, or Acute on Chronic? @ -Acute Uncomplicated (without systemic symptoms) or Complicated (systemic symptoms)? @ -complicated Side effects of treatment? @ -No Exacerbation, Progression, or Severe Exacerbation? @ -No Poses a threat to life or bodily function? How? (Chest pain, [place], [place], pneumonia, PE, COPD, DKA, ARF, appy, cholecystitis, CVA, Diverticulitis, Homicidal, Suicidal, threat to staff... and all critical care pts) @ -No - Lab Data Result diagrams: 07/28/24 08:40 07/28/24 08:40 Lab Results 07/28/24 07/28/24 07/28/24 Range/Units 08:40 08:40 08:40 WBC 13.7 H (3.8-10.6) k/uL RBC 4.20 L (4.30-5.90) m/uL Hgb 14.5 (13.0-17.5) gm/dL Hct 44.3 (39.0-53.0) % MCV 105.3 H (80.0-100.0) fL MCH 34.4 (25.0-35.0) pg MCHC 32.6 (31.0-37.0) g/dL RDW 12.7 (11.5-15.5) % Plt Count 136 L (150-450) k/uL MPV 7.7 Neutrophils % 87 % Lymphocytes % 5 % Monocytes % 6 % Eosinophils % 1 % Basophils % 0 % Neutrophils # 12.0 H (1.3-7.7) k/uL Lymphocytes # 0.7 L (1.0-4.8) k/uL Monocytes # 0.8 (0-1.0) k/uL Eosinophils # 0.1 (0-0.7) k/uL Basophils # 0.0 (0-0.2) k/uL Macrocytosis Slight PT (10.0-12.5) sec INR (<1.2) APTT (22.0-30.0) sec Sodium 138 (137-145) mmol/L Potassium 4.2 (3.5-5.1) mmol/L Chloride 104 (98-107) mmol/L Carbon Dioxide 26 (22-30) mmol/L Anion Gap 8 mmol/L BUN 13 (9-20) mg/dL Creatinine 0.97 (0.66-1.25) mg/dL Est GFR (CKD-EPI)AfAm >90 (>60 ml/min/1.73 sqM) Est GFR (CKD-EPI)NonAf >90 (>60 ml/min/1.73 sqM) Glucose 127 H (74-99) mg/dL Plasma Lactic Acid Peter 1.0 (0.7-2.0) mmol/L Calcium 9.1 (8.4-10.2) mg/dL Total Bilirubin 1.5 H (0.2-1.3) mg/dL AST 34 (17-59) U/L ALT 33 (4-49) U/L Alkaline Phosphatase 50 (38-126) U/L Total Protein 7.4 (6.3-8.2) g/dL Albumin 4.8 (3.5-5.0) g/dL Lipase 96 (23-300) U/L 07/28/24 Range/Units 08:41 WBC (3.8-10.6) k/uL RBC (4.30-5.90) m/uL Hgb (13.0-17.5) gm/dL Hct (39.0-53.0) % MCV (80.0-100.0) fL MCH (25.0-35.0) pg MCHC (31.0-37.0) g/dL RDW (11.5-15.5) % Plt Count (150-450) k/uL MPV Neutrophils % % Lymphocytes % % Monocytes % % Eosinophils % % Basophils % % Neutrophils # (1.3-7.7) k/uL Lymphocytes # (1.0-4.8) k/uL Monocytes # (0-1.0) k/uL Eosinophils # (0-0.7) k/uL Basophils # (0-0.2) k/uL Macrocytosis PT 9.6 L (10.0-12.5) sec INR 0.8 (<1.2) APTT 24.3 (22.0-30.0) sec Sodium (137-145) mmol/L Potassium (3.5-5.1) mmol/L Chloride (98-107) mmol/L Carbon Dioxide (22-30) mmol/L Anion Gap mmol/L BUN (9-20) mg/dL Creatinine (0.66-1.25) mg/dL Est GFR (CKD-EPI)AfAm (>60 ml/min/1.73 sqM) Est GFR (CKD-EPI)NonAf (>60 ml/min/1.73 sqM) Glucose (74-99) mg/dL Plasma Lactic Acid Peter (0.7-2.0) mmol/L Calcium (8.4-10.2) mg/dL Total Bilirubin (0.2-1.3) mg/dL AST (17-59) U/L ALT (4-49) U/L Alkaline Phosphatase (38-126) U/L Total Protein (6.3-8.2) g/dL Albumin (3.5-5.0) g/dL Lipase (23-300) U/L Disposition Clinical Impression: Colitis Disposition: HOME SELF-CARE Condition: Stable Instructions (If sedation given, give patient instructions): Colitis (ED) Additional Instructions: Please return to the Emergency Department if symptoms worsen or any other concerns. Prescriptions: Amoxic-Pot Clav 875-125Mg [Augmentin 875-125] 1 tab PO Q12HR #20 tab Ondansetron Odt [Zofran Odt] 4 mg PO Q8HR PRN #10 tab PRN Reason: Nausea Is patient prescribed a controlled substance at d/c from ED?: No Referrals: Eli Vizcaino MD [Primary Care Provider] - 1-2 days Marcio Erickson DO [Doctor of Osteopathic Medicine] - 1-2 days Liset Metzger MD [STAFF PHYSICIAN] - 1-2 days Time of Disposition: 11:06
[2024-07-28] MEDS: ACET/COD 300 MG/30 MG STARTER PACK 6 TAB BTL PO STA (11:12)
[2024-07-28 11:22] VITALS: BP 104/76; PULSE 74; RESP 18; TEMP 97.8
== END 2024-07-28 11:22 | disposition home or self-care (01) ==
LOC: EC 08:12
DX: K52.9 Noninfective gastroenteritis and colitis, unspecified (principal); F17.200 Nicotine dependence, unspecified, uncomplicated; Z90.89 Acquired absence of other organs
CPT/HCPCS: 36415; 80053; 83605; 83690; 85025; 85610; 85730; 74177; 99284; 96374; 96375; 96361; J2405; J1885; Q9967